=== PATIENT | female | born 1945 | race Caucasian/White ===

== ENCOUNTER → 2021-03-08 | Outpatient (CLI) | payer MEDICARE, OTHER ==
[~2021-03-08] MED LIST: SIMV10TA21
== END ==
LOC: M LABSMTC 12:33
PROVIDERS: ATTEND Anesthesiology
DX: Z01.812 Encounter for preprocedural laboratory examination (principal)

== ENCOUNTER 2021-03-13 11:49 | Day surgery (SDC) | payer MEDICARE ==
[~2021-03-13] VITALS: Ht 165.1 cm; Wt 73.9 kg
[~2021-03-13 11:49] MED LIST changes: +NS 1,000 ML IV ONE
[2021-03-13] MEDS ORDERED: propofoL 200 MG/20 ML VIAL As Ordered ONE (12:30)
[2021-03-13] MEDS ORDERED: LIDOCAINE 2% 100MG/5ML SDV (FOR ANES.) As Ordered ONE (12:30)
[2021-03-13] MEDS ORDERED: fentaNYL 100 MCG/2 ML INJECTION (J3010) As Ordered ONE (12:31)
--- NOTE | 2021-03-13 12:57 | ROOR ---
Patient Name: Violeta Yepez Procedure Date: 03/13/2021 12:27 PM Date of : 1945 Age: 76 Room: [facility] Gender: Female Note Status: Finalized Procedure: Upper GI endoscopy Indications: Dysphagia Providers: Trey Melchor MD Referring MD: Darius Marie DO Requesting Provider: Medicines: Monitored Anesthesia Care Complications: No immediate complications. Procedure: Pre-Anesthesia Assessment: - Prior to the procedure, a History and Physical was performed, and patient medications and allergies were reviewed. The patient is competent. The risks and benefits of the procedure and the sedation options and risks were discussed with the patient. All questions were answered and informed consent was obtained. Patient identification and proposed procedure were verified by the physician, the nurse and the anesthesiologist in the procedure room. Mental Status Examination: alert and oriented. Airway Examination: normal oropharyngeal airway and neck mobility. Respiratory Examination: clear to auscultation. CV Examination: normal. Prophylactic Antibiotics: The patient does not require prophylactic antibiotics. Prior Anticoagulants: The patient has taken no previous anticoagulant or antiplatelet agents. ASA Grade Assessment: II - A patient with mild systemic disease. After reviewing the risks and benefits, the patient was deemed in satisfactory condition to undergo the procedure. The anesthesia plan was to use monitored anesthesia care (MAC). Immediately prior to administration of medications, the patient was re-assessed for adequacy to receive sedatives. The heart rate, respiratory rate, oxygen saturations, blood pressure, adequacy of pulmonary ventilation, and response to care were monitored throughout the procedure. The physical status of the patient was re-assessed after the procedure. The Endoscope was introduced through the mouth, and advanced to the second part of duodenum. The upper GI endoscopy was accomplished without difficulty. The patient tolerated the procedure well. Findings: LA Grade B (one or more mucosal breaks greater than 5 mm, not extending between the tops of two mucosal folds) esophagitis with no bleeding was found in the distal esophagus. Biopsies were taken with a cold forceps for histology. Biopsies were obtained from the proximal and distal esophagus with cold forceps for histology of suspected eosinophilic esophagitis. Verification of patient identification for the specimen was done by the physician and nurse using the patient's name, date and medical record number. Estimated blood loss was minimal. A moderate Schatzki ring was found in the distal esophagus. A TTS dilator was passed through the scope. Dilation with a 15-16.5-18 mm balloon dilator was performed to 18 mm. No gross lesions were noted in the entire examined stomach. The duodenal bulb and second portion of the duodenum were normal. Impression: - LA Grade B reflux esophagitis. Biopsied. - Moderate Schatzki ring. Dilated. - No gross lesions in the stomach. - Normal duodenal bulb and second portion of the duodenum. Recommendation: - Patient has a contact number available for emergencies. The signs and symptoms of potential delayed complications were discussed with the patient. Return to normal activities tomorrow. Written discharge instructions were provided to the patient. - High fiber diet. - Follow an antireflux regimen. - Continue present medications. - Await pathology results. - Telephone GI clinic for pathology results in 2 weeks. - Use Protonix (pantoprazole) 40 mg PO BID for 8 weeks. - Use sucralfate suspension 1 gram PO QID. - Return to primary care physician. Procedure Code(s): --- Professional --- 41413, 59, Esophagogastroduodenoscopy, flexible, transoral; with transendoscopic balloon dilation of esophagus (less than 30 mm diameter) 33004, 59, Esophagogastroduodenoscopy, flexible, transoral; with biopsy, single or multiple Diagnosis Code(s): --- Professional --- K21.0, Gastro-esophageal reflux disease with esophagitis K22.2, Esophageal obstruction R13.10, Dysphagia, unspecified CPT copyright 2019 [employer]. All rights reserved. The codes documented in this report are preliminary and upon picture framer review may be revised to meet current compliance requirements. Trey Melchor MD Trey Melchor MD 03/13/2021 12:57:32 PM Electronically signed by Trey Melchor MD Number of Addenda: 0 Note Initiated On: 03/13/2021 12:27 PM Estimated Blood Loss: Estimated blood loss was minimal.
[2021-03-13 13:10] VITALS: BP 126/65
== END 2021-03-13 13:10 | disposition home or self-care (01) ==
LOC: M OPP 11:49
PROVIDERS: ATTEND Internal Medicine Gastroenterology
DX: R13.10 Dysphagia, unspecified (principal); D13.0 Benign neoplasm of esophagus; K21.00 Gastro-esophageal reflux disease with esophagitis, without bleeding; K22.2 Esophageal obstruction; E78.5 Hyperlipidemia, unspecified; R12 Heartburn; M19.90 Unspecified osteoarthritis, unspecified site; Z87.891 Personal history of nicotine dependence; Z88.8 Allergy status to other drugs, medicaments and biological substances; Z83.3 Family history of diabetes mellitus
CPT/HCPCS: 43239; 43249; 88305; J3010

== ENCOUNTER → 2021-11-01 | Outpatient (CLI) | payer MEDICARE ==
[~2021-11-01] MED LIST changes: +BENE1POW7 PO; +COLA100C5 PO; +D31000TA2 PO; -NS 1,000 ML IV ONE; -SIMV10TA21; +SIMV10TA21 PO
== END ==
LOC: M LABSMTC 10:58
PROVIDERS: ATTEND Anesthesiology
DX: Z01.812 Encounter for preprocedural laboratory examination (principal); Z20.822 Contact with and (suspected) exposure to COVID-19

== ENCOUNTER 2021-11-06 11:28 | Day surgery (SDC) | payer MEDICARE ==
[~2021-11-06] VITALS: Ht 165.1 cm; Wt 69.9 kg
[~2021-11-06 11:28] MED LIST changes: +NS 1,000 ML IV ONE
--- OUTSIDE RECORDS SUMMARY | 2021-11-06 11:33 | CCD | Continuity of Care Document ---
Author Author Violeta ANTON PA-C Organization Unknown Address [address] [place] [address] Phone [phone] Care Team Providers Care Internet Manager Name Role Phone Estela BowserP AUTM [phone] Problems Description No Information Available Social History Type Date Description Comments Sex Unknown Allergies, Adverse Reactions, Alerts Description No Information Available Medications Description No Information Available Immunizations Description No Information Available Vital Signs Date Vital Result Comment 08/24/2021 1:12pm Body Temperature 97.1 F Height 65 inches 5'5" Weight 150.00 lb BMI (Body Mass Index) 25.0 kg/m2 Results Description No Information Available Procedures Description No Information Available Medical Devices Description No Information Available Encounters Description No Information Available Assessments Date Code Description Provider 08/24/2021 M25.571 Pain in right ankle and joints o f right foot Pedro Anton PA-C 08/24/2021 S93.401A Sprain of unspecifie d ligament of right ankle, initial encounter Pedro Anton PA-C Plan of Treatment 08/24/2021 - Pedro Anton PA-C* M25.571 Pain in right ankle and joints of right foot* Follow up:* 2-3 weeks Rt. ankle merrill with BMS. * S93.401A Sprain of unspecified ligament of right ankle, initial encounter Functional Status Description No Information Available Mental Status Description No Information Available Referrals Description No Information Available
--- OUTSIDE RECORDS SUMMARY | 2021-11-06 11:33 | CCD | Continuity of Care Document ---
Author Author Violeta ANTON PA-C Organization Unknown Address [address] [place] [address] Phone [phone] Care Team Providers Care Ui Developer Designer Name Role Phone Estela BowserP AUTM [phone] Problems Active Problems Provider Date Pure hypercholesterolemia Onset: 021 Social History Type Date Description Comments Sex Unknown Allergies and adverse reactions Description No Known Drug Allergies Medications Active Medications SIG Qnty Indications Ordering Provide r Date Simvastatin 20mg Tablets 1 by mouth per day Unknown Immunizations Description No Information Available Vital Signs Date Vital Result Comment 08/24/2021 1:12pm Body Temperature 97.1 F Height 65 inches 5'5" Weight 150.00 lb BMI (Body Mass Index) 25.0 kg/m2 Results Description No Information Available Procedures Date Code Description Status 09/07/2021 35612 Office/Outpatient Established Mo d MDM 30-39 Min Completed 08/24/2021 99184 Office/Outpatient New Low MDM 30 -44 Minutes Completed Medical Devices Description No Information Available Encounters Type Date Location Provider Dx Diagnosis Office Visit 09/07/2021 11:00a [place] PA-C S9 3.401D Sprain of unspecified ligament of right ankle, subs encntr Office Visit 08/24/2021 1:00p [place] PA-C S9 3.401A Sprain of unspecified ligament of right ankle, init encntr M25.571 Pain in right ankle and join ts of right foot Assessments Date Code Description Provider 09/07/2021 S93.401D Sprain of unspecifie d ligament of right ankle, subsequent encounter Pedro Anton PA-C 08/24/2021 S93.401A Sprain of unspecifie d ligament of right ankle, initial encounter Pedro Anton PA-C 08/24/2021 M25.571 Pain in right ankle and joints o f right foot Pedro Anton PA-C Plan of Treatment Future Appointment(s):* 09/21/2021 1:00 pm - Pedro Anton PA-C at [place] 09/07/2021 - Pedro Anton PA-C* S93.401D Sprain of unspecified ligament of right ankle, subsequent encounter* Follow up:* 2 weeks for rt ankle recheck with BMS Functional Status Description No Information Available Mental Status Description No Information Available Referrals Description No Information Available
--- OUTSIDE RECORDS SUMMARY | 2021-11-06 11:33 | CCD | Continuity of Care Document ---
Author Violeta Sarabia M.D. Organization Unknown Address [address] [place] [address], [address] [place] [address] Phone [phone] Care Team Providers Care Client Experience Specialist Name Role Phone Estela Bowser Mariana AUTM [phone] Problems Description No Information Available Social History Type Date Description Comments Sex Unknown ETOH Use 1 A Day Tobacco Use Start: Unknown Non Smoker Allergies and adverse reactions Description No Known Drug Allergies Medications Active Medications SIG Qnty Indications Ordering Provide r Date Simvastatin 10mg Tablets 1tab po qd Unknown Immunizations Description No Information Available Vital Signs Date Vital Result Comment 09/13/2021 10:33am BP Systolic 122 mmHg BP Diastolic 66 mmHg Height 65 inches 5'5" Weight 158.00 lb BMI (Body Mass Index) 26.3 kg/m2 [place] Body Weight 125 lb Weight 71.669 kg BSA (Body Surface Area) 1.79 m2 02/22/2021 10:05am BP Systolic 116 mmHg BP Diastolic 58 mmHg Height 65 inches 5'5" Weight 161.00 lb BMI (Body Mass Index) 26.8 kg/m2 [place] Body Weight 125 lb Weight 73.030 kg BSA (Body Surface Area) 1.80 m2 Results Description No Information Available Procedures Description No Information Available Medical Devices Description No Information Available Encounters Description No Information Available Assessments Date Code Description Provider 09/13/2021 R13.10 Dysphagia, unspecified Trey Melchor M.D. 09/13/2021 K21.00 Gastro-esophageal re flux disease with esophagitis, without bleeding Trey Melchor M.D. 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 All questions answered. -- TO review with PCP about the alternatives for alendronate for now. -- Educated about the Anti reflux measures depending on symptoms.. -- Will schedule for EGD + Dilatation.. The procedure, indications, risks (bleeding, perforation, infection, hypotension, respiratory depression, allergy, need for endotracheal intubation, surgery, or even ), benefits, limitations (e.g., missing a lesion), and all other alternatives (including no intervention) were explained to the patient who understood and agreed for the procedure. -- Will refer to heartburn center for manometry. -- Patient is educated to continue with fiber supplements for constipation and follow with PCP for routine screening. ( refused colonoscopy again). -- Return to clinic 2 weeks post procedures. -- Follow up with PMD for routine medical care and other age appropriate health maintenance.. Functional Status Description No Information Available Mental Status Description No Information Available Referrals Description No Information Available
--- OUTSIDE RECORDS SUMMARY | 2021-11-06 11:33 | CCD | Continuity of Care Document ---
Author Author Violeta ANTON PA-C Organization Unknown Address [address] [place] [address] Phone [phone] Care Team Providers Care Anode Builder Name Role Phone Estela Bowser AUTM [phone] Problems Active Problems Provider Date Pure hypercholesterolemia [...] Information Available Procedures Date Code Description Status 10/12/2021 16806 Office/Outpatient Established SF MDM 10-19 Min Completed 09/07/2021 68994 Office/Outpatient Established SF MDM 10-19 Min Completed 08/24/2021 58578 Office/Outpatient New Low MDM 30 -44 Minutes Completed Medical Devices Description No Information Available Encounters Type Date Location Provider Dx Diagnosis Office Visit 10/12/2021 2:00p [place] Anton PA-C S9 3.401D Sprain of unspecified ligament of right ankle, subs encntr Office Visit 09/07/2021 11:00a [place] Anton PA-C S9 3.401D Sprain of unspecified ligament of right ankle, subs encntr Office Visit 08/24/2021 1:00p [place] Anton PA-C S9 3.401A Sprain of unspecified ligament of right ankle, init encntr M25.571 Pain in right ankle and join ts of right foot Assessments Date Code Description Provider 10/12/2021 S93.401D Sprain of unspecifie d ligament of right ankle, subsequent encounter Pedro Anton PA-C 09/07/2021 S93.401D Sprain of unspecifie d ligament of right ankle, subsequent encounter Pedro Anton PA-C 08/24/2021 S93.401A Sprain of unspecifie d ligament of right ankle, initial encounter Pedro Anton PA-C 08/24/2021 M25.571 Pain in right ankle and joints o f right foot Pedro Anton PA-C Plan of Treatment 10/12/2021 - Pedro Anton PA-C* S93.401D Sprain of unspecified ligament of right ankle, subsequent encounter* Follow up:* prn Functional Status Description No Information Available Mental Status Description No Information Available Referrals Description No Information Available
--- OUTSIDE RECORDS SUMMARY | 2021-11-06 11:33 | CCD | Continuity of Care Document ---
Author Author Violeta ANTON PA-C Organization Unknown Address [address] [place] [address] Phone [phone] Care Team Providers Care Fourchette Sewer Name Role Phone Estela BowserP AUTM [phone] Problems Active Problems Provider Date Pure hypercholesterolemia [...] Available Procedures Date Code Description Status 09/07/2021 48827 Office/Outpatient Established SF MDM 10-19 Min Completed 08/24/2021 08088 Office/Outpatient New Low MDM 30 -44 Minutes Completed Medical Devices Description No Information Available Encounters Type Date Location Provider Dx Diagnosis Office Visit 09/07/2021 11:00a [place] Anton PA-C S9 3.401D Sprain of unspecified ligament of right ankle, subs encntr Office Visit 08/24/2021 1:00p [place] Anton PA-C S9 3.401A Sprain of unspecified [...] 1:00 pm - Pedro Anton PA-C at [place] 09/07/2021 - Pedro Anton PA-C* S93.401D Sprain of unspecified ligament of right ankle, subsequent encounter* Follow up:* 2 weeks for rt ankle recheck with BMS Functional Status Description No Information Available Mental Status Description No Information Available Referrals Description No Information Available
--- OUTSIDE RECORDS SUMMARY | 2021-11-06 11:33 | CCD | Continuity of Care Document ---
Author Author Violeta ANTON PA-C Organization Unknown Address [address] [place] [address] Phone [phone] Care Team Providers Care Track Surfacing Machine Operator Name Role Phone Estela BowserP AUTM [phone] Problems Active Problems Provider Date Pure hypercholesterolemia Onset: 021 Social History Type Date Description Comments Sex Unknown Allergies, Adverse Reactions, Alerts Description No Known Drug Allergies Medications Active [...] Information Available Procedures Date Code Description Status 08/24/2021 50133 Office/Outpatient New Low [facility] 30 -44 Minutes Completed Medical Devices Description No Information Available Encounters Type Date Location Provider Dx Diagnosis Office Visit 08/24/2021 1:00p [place] Pedro Anton PA-C S9 3.401A Sprain of unspecified ligament of right ankle, init encntr M25.571 Pain in right ankle and join ts of right foot Assessments Date Code Description Provider 08/24/2021 S93.401A Sprain of unspecifie d ligament of right ankle, initial encounter Pedro Anton PA-C 08/24/2021 M25.571 Pain in right ankle and joints o f right foot Pedro Anton PA-C Plan of Treatment Future Appointment(s):* 09/07/2021 11:00 am - Pedro Anton PA-C at [place] 08/24/2021 - Pedro Anton PA-C* S93.401A Sprain of unspecified ligament of right ankle, initial encounter * M25.571 Pain in right ankle and joints of right foot* Follow up:* 2-3 weeks Rt. ankle merrill with BMS. Functional Status Description No Information Available Mental Status Description No Information Available Referrals Description No Information Available
--- OUTSIDE RECORDS SUMMARY | 2021-11-06 11:33 | CCD | Continuity of Care Document ---
Author Author Violeta ANTON PA-C Organization Unknown Address [address] [place] [address] Phone [phone] Care Team Providers Care Data Management Consultant Name Role Phone Estela BowserP AUTM [phone] Problems Active Problems Provider Date Pure hypercholesterolemia [...] Available Procedures Date Code Description Status 09/07/2021 18601 Office/Outpatient Established Mo d MDM 30-39 Min Completed 08/24/2021 36434 Office/Outpatient New Low MDM 30 -44 Minutes Completed Medical Devices Description No Information Available Encounters Type Date Location Provider Dx Diagnosis Office Visit 09/07/2021 11:00a [place] PA-C S9 3.401D Sprain of unspecified ligament of right ankle, subs encntr Office Visit 08/24/2021 1:00p [place] PA-C S9 3.401A Sprain of unspecified [...] 1:00 pm - Pedro Anton PA-C at [place] 09/07/2021 - Pedro Anton PA-C* S93.401D Sprain of unspecified ligament of right ankle, subsequent encounter* Follow up:* 2 weeks for rt ankle recheck with BMS Functional Status Description No Information Available Mental Status Description No Information Available Referrals Description No Information Available
--- OUTSIDE RECORDS SUMMARY | 2021-11-06 11:34 | CCD ---
Author Author [facility] Organization [facility] Address Unknown Phone Unavailable Care Team Providers Care Freight Clerk Name Role Phone Kacie Anton Unavailable Unavailable Kacie Anton Unavailable Unavailable Kacie Anton Unavailable Unavailable Kacie Anton Unavailable Unavailable Kacie Anton Unavailable Unavailable Kacie Anton Unavailable Unavailable Kacie Anton Unavailable Unavailable Kacie Anton Unavailable Unavailable Kacie Anton Unavailable Unavailable Kacie Anton Unavailable Unavailable Kacie Anton Unavailable Unavailable Kacie Anton Unavailable Unavailable Kacie Anton Unavailable Unavailable Kacie Anton Unavailable Unavailable Kacie Anton Unavailable Unavailable Kacie Anton Unavailable Unavailable Kacie Anton Unavailable Unavailable Kacie Anton Unavailable Unavailable Kacie Anton Unavailable Unavailable Kacie Anton Unavailable Unavailable Kacie Anton Unavailable Unavailable Kacie Anton Unavailable Unavailable Kacie Anton Unavailable Unavailable Kacie Anton Unavailable Unavailable Kacie Anton Unavailable Unavailable Anton, M Barratt PA Unavailable Unavailable Anton, M Barratt PA Unavailable Unavailable Anton, M Barratt PA Unavailable Unavailable Anton, M Barratt PA Unavailable Unavailable Niels, H Estela FUNERAL DIRECTOR/EMBALMER/OWNER Unavailable Unavailable Niels, H Estela FUNERAL DIRECTOR/EMBALMER/OWNER Unavailable Unavailable Niels, H Estela FUNERAL DIRECTOR/EMBALMER/OWNER Unavailable Unavailable Niels, H Estela FUNERAL DIRECTOR/EMBALMER/OWNER Unavailable Unavailable Niels, H Estela FUNERAL DIRECTOR/EMBALMER/OWNER Unavailable Unavailable Niels, H Estela FUNERAL DIRECTOR/EMBALMER/OWNER Unavailable Unavailable Niels, H Estela FUNERAL DIRECTOR/EMBALMER/OWNER Unavailable Unavailable Niels, H Estela FUNERAL DIRECTOR/EMBALMER/OWNER Unavailable Unavailable Niels, H Estela FUNERAL DIRECTOR/EMBALMER/OWNER Unavailable Unavailable Niels, H Estela FUNERAL DIRECTOR/EMBALMER/OWNER Unavailable Unavailable Niels, H Estela FUNERAL DIRECTOR/EMBALMER/OWNER Unavailable Unavailable Niels, H Estela FUNERAL DIRECTOR/EMBALMER/OWNER Unavailable Unavailable Niels, H Estela FUNERAL DIRECTOR/EMBALMER/OWNER Unavailable Unavailable Inels, H Estela FUNERAL DIRECTOR/EMBALMER/OWNER Unavailable Unavailable Niels, H Estela FUNERAL DIRECTOR/EMBALMER/OWNER Unavailable Unavailable Niels, H Estela FUNERAL DIRECTOR/EMBALMER/OWNER Unavailable Unavailable Niels, H Estela FUNERAL DIRECTOR/EMBALMER/OWNER Unavailable Unavailable Niels, H Estela FUNERAL DIRECTOR/EMBALMER/OWNER Unavailable Unavailable Niels, H Estela FUNERAL DIRECTOR/EMBALMER/OWNER Unavailable Unavailable Niels, H Estela FUNERAL DIRECTOR/EMBALMER/OWNER Unavailable Unavailable Niels, H Estela FUNERAL DIRECTOR/EMBALMER/OWNER Unavailable Unavailable Niels, H Estela FUNERAL DIRECTOR/EMBALMER/OWNER Unavailable Unavailable Niels, H Estela FUNERAL DIRECTOR/EMBALMER/OWNER Unavailable Unavailable Niels, H Estela FUNERAL DIRECTOR/EMBALMER/OWNER Unavailable Unavailable Niels, H Estela FUNERAL DIRECTOR/EMBALMER/OWNER Unavailable Unavailable Niels, H Estela FUNERAL DIRECTOR/EMBALMER/OWNER Unavailable Unavailable Niels, H Estela FUNERAL DIRECTOR/EMBALMER/OWNER Unavailable Unavailable Niels, H Estela FUNERAL DIRECTOR/EMBALMER/OWNER Unavailable Unavailable Niels, H Estela FUNERAL DIRECTOR/EMBALMER/OWNER Unavailable Unavailable Niels, H Estela FUNERAL DIRECTOR/EMBALMER/OWNER Unavailable Unavailable Niels, H Estela FUNERAL DIRECTOR/EMBALMER/OWNER Unavailable Unavailable Niels, H Estela FUNERAL DIRECTOR/EMBALMER/OWNER Unavailable Unavailable Niels, H Estela FUNERAL DIRECTOR/EMBALMER/OWNER Unavailable Unavailable Niels, H Estela FUNERAL DIRECTOR/EMBALMER/OWNER Unavailable Unavailable Niels, H Estela FUNERAL DIRECTOR/EMBALMER/OWNER Unavailable Unavailable Niels, H Estela FUNERAL DIRECTOR/EMBALMER/OWNER Unavailable Unavailable Niels, H Estela FUNERAL DIRECTOR/EMBALMER/OWNER Unavailable Unavailable Niels, H Estela FUNERAL DIRECTOR/EMBALMER/OWNER Unavailable Unavailable Niels, H Estela FUNERAL DIRECTOR/EMBALMER/OWNER Unavailable Unavailable Niels, H Estela FUNERAL DIRECTOR/EMBALMER/OWNER Unavailable Unavailable Niels, H Estela FUNERAL DIRECTOR/EMBALMER/OWNER Unavailable Unavailable Niels, H Estela FUNERAL DIRECTOR/EMBALMER/OWNER Unavailable Unavailable Niels, H Estela FUNERAL DIRECTOR/EMBALMER/OWNER Unavailable Unavailable Niels, H Estela FUNERAL DIRECTOR/EMBALMER/OWNER Unavailable Unavailable Niels, H Estela FUNERAL DIRECTOR/EMBALMER/OWNER Unavailable Unavailable Niels, H Estela FUNERAL DIRECTOR/EMBALMER/OWNER Unavailable Unavailable Niels, H Estela FUNERAL DIRECTOR/EMBALMER/OWNER Unavailable Unavailable Niels, H Estela FUNERAL DIRECTOR/EMBALMER/OWNER Unavailable Unavailable Niels, H Estela FUNERAL DIRECTOR/EMBALMER/OWNER Unavailable Unavailable Niels, H Estela FUNERAL DIRECTOR/EMBALMER/OWNER Unavailable Unavailable Niels, H Estela FUNERAL DIRECTOR/EMBALMER/OWNER Unavailable Unavailable Niels, H Estela FUNERAL DIRECTOR/EMBALMER/OWNER Unavailable Unavailable Niels, H Estela FUNERAL DIRECTOR/EMBALMER/OWNER Unavailable Unavailable Niels, H Estela FUNERAL DIRECTOR/EMBALMER/OWNER Unavailable Unavailable Niels, H Estela FUNERAL DIRECTOR/EMBALMER/OWNER Unavailable Unavailable Niels, H Estela FUNERAL DIRECTOR/EMBALMER/OWNER Unavailable Unavailable Niels, H Estela FUNERAL DIRECTOR/EMBALMER/OWNER Unavailable Unavailable Niels, H Estela FUNERAL DIRECTOR/EMBALMER/OWNER Unavailable Unavailable Niels, H Estela FUNERAL DIRECTOR/EMBALMER/OWNER Unavailable Unavailable Charity, Vu Unavailable Unavailable Charity, Vu Unavailable Unavailable Charity, Vu Unavailable Unavailable Charity, Vu Unavailable Unavailable Charity, Vu Unavailable Unavailable Charity, Vu Unavailable Unavailable Anton, M Barratt PA Unavailable Unavailable Anton, M Barratt PA Unavailable Unavailable Anton, M Barratt PA Unavailable Unavailable Anton, M Barratt PA Unavailable Unavailable Anton, M Barratt PA Unavailable Unavailable Anton, M Barratt PA Unavailable Unavailable Anton, M Barratt PA Unavailable Unavailable Anton, M Barratt PA Unavailable Unavailable Anton, M Barratt PA Unavailable Unavailable Anton, M Barratt PA Unavailable Unavailable Anton, M Barratt PA Unavailable Unavailable Anton, M Barratt PA Unavailable Unavailable Anton, M Barratt PA Unavailable Unavailable Anton, M Barratt PA Unavailable Unavailable Anton, M Barratt PA Unavailable Unavailable Anton, M Barratt PA Unavailable Unavailable Anton, M Barratt PA Unavailable Unavailable Anton, M Barratt PA Unavailable Unavailable Anton, M Barratt PA Unavailable Unavailable Anton, M Barratt PA Unavailable Unavailable Anton, M Barratt PA Unavailable Unavailable Anton, M Barratt PA Unavailable Unavailable Anton, M Barratt PA Unavailable Unavailable Anton, M Barratt PA Unavailable Unavailable Anton, M Barratt PA Unavailable Unavailable Anton, M Barratt PA Unavailable Unavailable Anton, M Barratt PA Unavailable Unavailable Anton, M Barratt PA Unavailable Unavailable Anton, M Barratt PA Unavailable Unavailable Joann AMARO MD Unavailable Unavailable Joann AMARO MD Unavailable Unavailable Joann AMARO MD Unavailable Unavailable Joann AMAOR MD Unavailable Unavailable Joann AMARO MD Unavailable Unavailable Joann AMARO MD Unavailable Unavailable Joann AMARO MD Unavailable Unavailable Joann AMARO MD Unavailable Unavailable Joann AMARO MD Unavailable Unavailable Joann AMARO MD Unavailable Unavailable Joann AMARO MD Unavailable Unavailable Joann AMARO MD Unavailable Unavailable Joann AMARO MD Unavailable Unavailable Joann AMARO MD Unavailable Unavailable Joann AMARO MD Unavailable Unavailable Joann AMARO MD Unavailable Unavailable Joann AMARO MD Unavailable Unavailable Joann AMARO MD Unavailable Unavailable Joann AMARO MD Unavailable Unavailable Joann AMARO MD Unavailable Unavailable Joann AMARO MD Unavailable Unavailable Joann AMARO MD Unavailable Unavailable Joann AMARO MD Unavailable Unavailable Joann AMARO MD Unavailable Unavailable Joann AMARO MD Unavailable Unavailable Joann AMARO MD Unavailable Unavailable Joann AMARO MD Unavailable Unavailable Joann AMARO MD Unavailable Unavailable Joann AMARO MD Unavailable Unavailable Joann AMARO MD Unavailable Unavailable Joann AMARO MD Unavailable Unavailable Joann AMARO MD Unavailable Unavailable Joann AMARO MD Unavailable Unavailable Niels, H Estela FUNERAL DIRECTOR/EMBALMER/OWNER Unavailable Unavailable Niels, H Estela FUNERAL DIRECTOR/EMBALMER/OWNER Unavailable Unavailable Niels, H Estela FUNERAL DIRECTOR/EMBALMER/OWNER Unavailable Unavailable Niesl, H Estela FUNERAL DIRECTOR/EMBALMER/OWNER Unavailable Unavailable Niels, H Estela FUNERAL DIRECTOR/EMBALMER/OWNER Unavailable Unavailable Niels, H Estela FUNERAL DIRECTOR/EMBALMER/OWNER Unavailable Unavailable Niels, H Estela FUNERAL DIRECTOR/EMBALMER/OWNER Unavailable Unavailable Niels, H Estela FUNERAL DIRECTOR/EMBALMER/OWNER Unavailable Unavailable Niels, H Estela FUNERAL DIRECTOR/EMBALMER/OWNER Unavailable Unavailable Niels, H Estela FUNERAL DIRECTOR/EMBALMER/OWNER Unavailable Unavailable Niels, H Estela FUNERAL DIRECTOR/EMBALMER/OWNER Unavailable Unavailable Niels, H Estela FUNERAL DIRECTOR/EMBALMER/OWNER Unavailable Unavailable Niels, H Estela FUNERAL DIRECTOR/EMBALMER/OWNER Unavailable Unavailable Niels, H Estela FUNERAL DIRECTOR/EMBALMER/OWNER Unavailable Unavailable Niels, H Estela FUNERAL DIRECTOR/EMBALMER/OWNER Unavailable Unavailable Niels, H Estela FUNERAL DIRECTOR/EMBALMER/OWNER Unavailable Unavailable Niels, H Estela FUNERAL DIRECTOR/EMBALMER/OWNER Unavailable Unavailable Niels, H Estela FUNERAL DIRECTOR/EMBALMER/OWNER Unavailable Unavailable Niels, H Estela FUNERAL DIRECTOR/EMBALMER/OWNER Unavailable Unavailable Niels, H Estela FUNERAL DIRECTOR/EMBALMER/OWNER Unavailable Unavailable Niels, H Estela FUNERAL DIRECTOR/EMBALMER/OWNER Unavailable Unavailable Niels, H Estela FUNERAL DIRECTOR/EMBALMER/OWNER Unavailable Unavailable Niels, H Estela FUNERAL DIRECTOR/EMBALMER/OWNER Unavailable Unavailable Niels, H Estela FUNERAL DIRECTOR/EMBALMER/OWNER Unavailable Unavailable Niels, H Estela FUNERAL DIRECTOR/EMBALMER/OWNER Unavailable Unavailable Niels, H Estela FUNERAL DIRECTOR/EMBALMER/OWNER Unavailable Unavailable Niels, H Estela FUNERAL DIRECTOR/EMBALMER/OWNER Unavailable Unavailable Niels, H Estela FUNERAL DIRECTOR/EMBALMER/OWNER Unavailable Unavailable Niels, H Estela FUNERAL DIRECTOR/EMBALMER/OWNER Unavailable Unavailable Niels, H Estela FUNERAL DIRECTOR/EMBALMER/OWNER Unavailable Unavailable Niels, H Estela FUNERAL DIRECTOR/EMBALMER/OWNER Unavailable Unavailable Niels, H Estela FUNERAL DIRECTOR/EMBALMER/OWNER Unavailable Unavailable Niels, H Estela FUNERAL DIRECTOR/EMBALMER/OWNER Unavailable Unavailable Niels, H Estela FUNERAL DIRECTOR/EMBALMER/OWNER Unavailable Unavailable Niels, H Estela FUNERAL DIRECTOR/EMBALMER/OWNER Unavailable Unavailable Niels, H Estela FUNERAL DIRECTOR/EMBALMER/OWNER Unavailable Unavailable Niels, H Estela FUNERAL DIRECTOR/EMBALMER/OWNER Unavailable Unavailable Niels, H Estela FUNERAL DIRECTOR/EMBALMER/OWNER Unavailable Unavailable Niels, H Estela FUNERAL DIRECTOR/EMBALMER/OWNER Unavailable Unavailable Niels, H Estela FUNERAL DIRECTOR/EMBALMER/OWNER Unavailable Unavailable Niels, H Estela FUNERAL DIRECTOR/EMBALMER/OWNER Unavailable Unavailable Niels, H Estela FUNERAL DIRECTOR/EMBALMER/OWNER Unavailable Unavailable Niels, H Estela FUNERAL DIRECTOR/EMBALMER/OWNER Unavailable Unavailable Niels, H Estela FUNERAL DIRECTOR/EMBALMER/OWNER Unavailable Unavailable Niels, H Estela FUNERAL DIRECTOR/EMBALMER/OWNER Unavailable Unavailable Niels, H Estela FUNERAL DIRECTOR/EMBALMER/OWNER Unavailable Unavailable Niels, H Estela FUNERAL DIRECTOR/EMBALMER/OWNER Unavailable Unavailable Niels, H Estela FUNERAL DIRECTOR/EMBALMER/OWNER Unavailable Unavailable Niels, H Estela FUNERAL DIRECTOR/EMBALMER/OWNER Unavailable Unavailable Niels, H Estela FUNERAL DIRECTOR/EMBALMER/OWNER Unavailable Unavailable Niels, H Estela FUNERAL DIRECTOR/EMBALMER/OWNER Unavailable Unavailable Niels, H Estela FUNERAL DIRECTOR/EMBALMER/OWNER Unavailable Unavailable Niels, H Estela FUNERAL DIRECTOR/EMBALMER/OWNER Unavailable Unavailable Niels, H Estela FUNERAL DIRECTOR/EMBALMER/OWNER Unavailable Unavailable Niels, H Estela FUNERAL DIRECTOR/EMBALMER/OWNER Unavailable Unavailable Niels, H Estela FUNERAL DIRECTOR/EMBALMER/OWNER Unavailable Unavailable Niels, H Estela FUNERAL DIRECTOR/EMBALMER/OWNER Unavailable Unavailable Niels, H Estela FUNERAL DIRECTOR/EMBALMER/OWNER Unavailable Unavailable Niels, H Estela FUNERAL DIRECTOR/EMBALMER/OWNER Unavailable Unavailable CHANLIECCO, C LOUISA MD Unavailable Unavailable CHANLIECCO, C LOUISA MD Unavailable Unavailable CHANLIECCO, C LOUISA MD Unavailable Unavailable CHANLIECCO, C LOUISA MD Unavailable Unavailable CHANLIECCO, C LOUISA MD Unavailable Unavailable CHANLIECCO, C LOUISA MD Unavailable Unavailable CHANLIECCO, C LOUISA MD Unavailable Unavailable CHANLIECCO, C LOUISA MD Unavailable Unavailable CHANLIECCO, C LOUISA MD Unavailable Unavailable CHANLIECCO, C LOUISA MD Unavailable Unavailable CHANLIECCO, C LOUISA MD Unavailable Unavailable Re-disclosure Warning The records that you are about to access may contain information from federally-assisted alcohol or drug abuse programs. If such information is present, then the following federally mandated warning applies: This information has been disclosed to you from records protected by federal confidentiality rules (42 CFR part 2). The federal rules prohibit you from making any further disclosure of this information unless further disclosure is expressly permitted by the written consent of the person to whom it pertains or as otherwise permitted by 42 CFR part 2. A general authorization for the release of medical or other information is NOT sufficient for this purpose. The Federal rules restrict any use of the information to criminally investigate or prosecute any alcohol or drug abuse patient.The records that you are about to access may contain highly sensitive health information, the redisclosure of which is protected by Article 27-F of the [facility] Public Health law. If you continue you may have access to information: Regarding HIV / AIDS; Provided by facilities licensed or operated by the [facility] Office of Mental Health; or Provided by the [facility] Office for People With Developmental Disabilities. If such information is present, then the following [facility] mandated warning applies: This information has been disclosed to you from confidential records which are protected by state law. State law prohibits you from making any further disclosure of this information without the specific written consent of the person to whom it pertains, or as otherwise permitted by law. Any unauthorized further disclosure in violation of state law may result in a fine or chcf sentence or both. A general authorization for the release of medical or other information is NOT sufficient authorization for further disc losure. Allergies and Adverse Reactions Type Description Substance Reaction Status Data Source(s ) Food allergy No Known Food Allergies No Known Food Allergies [facility] Family History Family Member Name Family Member Gender Family Member Status Date o f Status Description Data Source(s) Unknown Condition [facility] Unknown [facility] Unknown [facility] Unknown Condition [facility] Encounters Encounter Providers Location Date Indications Data Source(s ) Outpatient Attender: Pedro JESUS Physical Therapy 01:00:00 PM EST [facility] ([facility]) Outpatient Attender: Estela Mcconnellerrer: Estela Bowser NP 10/11/2021 09:55:[address] [facility] Outpatient Attender: Pedro Anton PAConsultant: Estela Fontanez NP 09/13/2021 11:43:10 AM EDT - 09/29/2021 01:16:00 PM EDT [facility] Patient discharged. Outpatient Attender: Pedro JESUS Physical Therapy 11:00:00 AM EDT [facility] ([facility]) OFFICE OUTPATIENT NEW 30 MINUTES Attender: Pedro JESUS Ph ysical Therapy 08/24/2021 01:00:00 PM EDT [facility] ([facility]) Emergency Attender: LOUISA CHATTERJEE MDConsultant: Tamera Bowser NP 08/22/2021 10:09:00 PM EDT - 08/22/2021 11:53:00 PM EDT [facility] Patient discharged. Outpatient Attender: Estela Mcconnellerrer: Estela Bowser NP 06/29/2021 07:37:00 AM EDT - 06/29/2021 08:16:00 AM EDT [facility] Outpatient Attender: Vu Nash 06/19/2021 08:37:00 AM EDT [place],E78.2,M81.0 [facility] [place],E78.2,M81.0 Outpatient Attender: Vu NashReferrer: Estela Bowser NP 06/16/2021 09:33:00 AM EDT - 06/16/2021 10:13:00 AM EDT [facility] Outpatient Attender: Estela Bowser NP 06/13/2021 11:11:00 AM E DT K59.00 [facility] K59.00 Outpatient Attender: Estela Sanzeferrer: Estela Bowser NP 06/08/2021 02:34:[address] [facility] Outpatient Attender: Estela Sanzeferrer: Estela Bowser NP 04/05/2021 07:50:[address] [facility] Outpatient Attender: Estela Bowser NP 03/15/2021 08:27:00 AM E DT M81.0,E78.5 [facility] M81.0,E78.5 Outpatient Attender: Estela Sanzeferrer: Estela Bowser NP 03/02/2021 07:32:00 AM EDT - 03/02/2021 08:18:00 AM EDT [facility] Outpatient Attender: DURAN Parada/Tripp/Sloan clancy/Willie 02/22/2021 10:00:00 AM EDT [facility] ([facility], ) Outpatient Attender: Estela Sanzeferrer: Estela Bowser NP 01/10/2021 01:45:00 PM EST - 01/10/2021 02:07:00 PM [facility] Outpatient Attender: Estela Boswer NP 10/10/2020 09:33:[address] DYSPHAS[facility] DYSPHASIA Outpatient Attender: Estela Sanzeferrer: Estela Bowser NP 10/06/2020 08:52:00 AM EST - 10/06/2020 09:44:00 AM [facility] Immunizations Vaccine Date Status Description Data Source(s) pneumococcal polysaccharide PPV23 04/05/2021 12:00:00 AM EDT comple bobby [facility] COVID-19 Moderna 03/01/2021 12:00:00 AM EDT completed [facility] COVID-19 VACCINE Moderna 03/01/2021 12:00:00 AM EDT completed [facility] Vaccine Series Complete: YESThis Data wa s Submitted to [facility] [employer]. COVID-19 VACCINE, MRNA-1273, LNP-S (MODERNA)/PF 03/01/2021 1 2:00:00 AM EDT completed [facility] COVID-19 Moderna 01/29/2021 12:00:00 AM EST completed [facility] COVID-19 VACCINE Moderna 01/29/2021 12:00:00 AM EST completed [facility] Vaccine Series Complete: NOThis Data was Submitted to [facility] [employer]. COVID-19 VACCINE, MRNA-1273, LNP-S (MODERNA)/PF 01/29/2021 1 2:00:00 AM EST completed [facility] Shingrix 01/10/2021 12:00:00 AM EST completed [facility] Shinix 01/10/2021 12:00:00 AM [facility] AM [facility] 12:00[facility]00 AM EST [facility] 12:00:00 AM EST completed [facility] Medications Medication Brand Name Start Date Product Form Dose Route Admi nistrative Instructions Pharmacy Instructions Status Indications Reaction Description Data Source(s) Acetaminophen 325 MG / Hydrocodone Bitartrate 5 MG Ora l Tablet 5-325 mg HYDROCODONE/ACETAMINOPHEN 08/23/2021 12:00:00 AM EDT tablet 12 TAKE ONE TABLET BY MOUTH THREE TIMES A DAY NEEDED FOR SEVERE PAIN MAXIMUM DAILY DOSE = 3 TAKE ONE TABLET BY MOUTH THREE TIMES A DAY NEEDED FOR SEVERE PAIN MAXIMUM DAILY DOSE = 3 SOLD: 08/23/2021 [facility] 600 mg 08/23/2021 12:00:00 AM EDT tablet 30 TAKE ONE TABLET BY MOUTH EVERY 8 HOURS NEEDED FOR PAIN/FEVER TAKE ONE TABLET BY MOUTH EVERY 8 HOURS A S NEEDED FOR PAIN/FEVER SOLD: 08/23/2021 [facility] POLYETHYLENE GLYCOL 3350 142 MG/ML Oral Solution Polyethylene Glycol 3350 (Miralax) 17 gram/dose powder Polyethylene Glycol 3350 (Miralax) 17 gr am/dose powder 06/08/2021 03:15:25 PM EDT 17 [facility] WHEAT DEXTRIN Wheat Dextrin (Benefiber Healthy Shape) 5 gram/7.4 gram powder Wheat Dextrin (Benefiber Healthy Shape) 5 gram/7.4 gram powder 04/05/2021 08:20:22 AM EDT [address] [facility] Cholecalciferol 1000 UNT Oral Capsule Cholecalciferol (Vitamin D3) Cholecalciferol (Vitamin D3) 04/05/2021 08:19:57 AM EDT [address] [facility] pantoprazole 40 MG Delayed Release Oral Tablet Pantoprazole Pantoprazole 04/05/2021 08:19:33 AM EDT 40 MG completed [facility] Sucralfate 04/05/2021 08:19:18 AM EDT 10 ML comple bobby [facility] 0.5 ML pneumococcal capsular polysacchar kris type 1 vaccine 0.05 MG/ML / pneumococcal capsular polysaccharide type 10A vaccine 0.05 MG/ML / pneumococcal capsular polysaccharide type 11A vaccine 0.05 MG/ML / pneumococcal capsular polysaccharide type 12F vac pneumococcal 23-nathan ps vaccine 25 mcg/0.5 mL injection syringe pneumococcal 23-nathan ps vaccine 25 mcg/0. 5 mL injection syringe 04/05/2021 07:50:48 AM EDT 0.5 ML [facility] Simvastatin 20 MG Oral Tablet Simvastatin 03/15/2021 10:01:41 AM EDT 20 MG active [facility] pantoprazole 40 MG Delayed Release Oral Tablet PANTOPRAZOLE SODIUM 03/13/2021 12:00:00 AM EDT tablet,delayed release (/EC) 60 T KATHRYN 1 TABLET BY MOUTH IN THE MORNING 1/2 HOUR BEFORE BREAKFAST AND TAKE ONE TABLET BY MOUTH BEFORE BEDTIME, TAPER AFTER 8 WEEKS TAKE 1 TABLET BY MOUTH IN THE MORNING 1/ 2 HOUR BEFORE BREAKFAST AND TAKE ONE TABLET BY MOUTH BEFORE BEDTIME, TAPER AFTER 8 WEEKS SOLD: 04/05/2021 [facility] pantoprazole 40 MG Delayed Release Oral Tablet Pantoprazole Sodium 03/13/2021 12:00:00 AM EDT active M [facility] ([facility], ) 100 mg/mL 03/13/2021 12:00:00 AM EDT suspension 420 TAKE 10ML BY MOUTH HALF AN HOUR BEFORE MEALS, AND AT BEDTIME (3-4 TIMES DAILY) FOR 4 WEEKS TAKE 10ML BY MOUTH HALF AN HOUR BEFORE MEALS, AND AT BEDTIME (3-4 TIMES DAILY) FOR 4 WEEKS SOLD: 03/14/2021 [facility] pantoprazole 40 MG Delayed Release Oral Tablet PANTOPRAZOLE SODIUM 03/13/2021 12:00:00 AM EDT tablet,delayed release (DR/EC) 60 T KATHRYN 1 TABLET BY MOUTH IN THE MORNING 1/2 HOUR BEFORE BREAKFAST AND TAKE ONE TABLET BY MOUTH BEFORE BEDTIME, TAPER AFTER 8 WEEKS TAKE 1 TABLET BY MOUTH IN THE MORNING 1/ 2 HOUR BEFORE BREAKFAST AND TAKE ONE TABLET BY MOUTH BEFORE BEDTIME, TAPER AFTER 8 WEEKS SOLD: 03/14/2021 [facility] Sucralfate 100 MG/ML Oral Suspension Sucralfate 03/13/2021 12:00:00 A M EDT ORAL active [facility] ([facility], ) Alendronic acid 70 MG Oral Tablet Alendronate Alendronate 02/06/2021 08:02:48 AM EST 0 completed [facility] Shingrix (PF) 50 mcg/0.5 mL intramuscular suspension, kit (v aricella-zoster 01/10/2021 01:45:49 PM EST 0.5 ML completed [facility] Shingrix (PF) 50 mcg/0.5 mL intramuscular suspension, kit (v aricella-zoster 01/10/2021 01:45:49 PM EST 0.5 ML completed [facility] Simvastatin 10 MG Oral Tablet Simvastatin 10/06/2020 09:27:36 AM EST 10 MG completed [facility] Simvastatin 10 MG Oral Tablet Simvastatin 10/06/2020 09:27:36 AM EST 10 MG active [facility] Simvastatin 10 MG Oral Tablet Simvastatin 10/06/2020 09:27:36 AM EST 10 MG active [facility] Alendronic acid 70 MG Oral Tablet Alendronate Alendronate 10/06/2020 09:26:43 AM EST 70 MG active [facility] Alendronic acid 70 MG Oral Tablet Alendronate Alendronate 10/06/2020 09:26:43 AM EST 70 MG active [facility] Alendronic acid 70 MG Oral Tablet Alendronate Alendronate 10/06/2020 09:26:43 AM EST 70 MG completed [facility] Shingrix (PF) 50 mcg/0.5 mL intramuscular suspension, kit (v aricella-zoster 10/06/2020 08:52:00 AM EST 0.5 ML completed [facility] Shingrix (PF) 50 mcg/0.5 mL intramuscular suspension, kit (v aricella-zoster 10/06/2020 08:52:00 AM EST 0.5 ML completed [facility] Shingrix (PF) 50 mcg/0.5 mL intramuscular suspension, kit (v aricella-zoster 10/06/2020 08:52:00 AM EST 0.5 ML completed [facility] Fluticasone Propionate (Flonase Allergy Relief) 50 mcg/actuation spray,suspension 04/28/2020 05:01:45 PM EDT 2 SPRAY completed [facility] cetirizine hydrochloride 10 MG Oral Tablet Cetirizine (Zyrtec) 10 mg tablet Cetirizine (Zyrtec) 10 mg tablet 04/28/2020 05:01:01 PM EDT 10 MG completed [facility] Alendronic acid 70 MG Oral Tablet Alendronate Alendronate 04/07/2020 03:11:38 PM EDT 70 MG completed [facility] Alendronic acid 70 MG Oral Tablet Alendronate Alendronate 04/07/2020 03:11:38 PM EDT 70 MG completed [facility] Alendronic acid 70 MG Oral Tablet Alendronate Alendronate 04/07/2020 03:11:38 PM EDT 70 MG completed [facility] Simvastatin 10 MG Oral Tablet Simvastatin 12/17/2019 11:08:41 AM EST 10 MG completed [facility] Simvastatin 10 MG Oral Tablet Simvastatin 12/17/2019 11:08:41 AM EST 10 MG completed [facility] Simvastatin 10 MG Oral Tablet Simvastatin 12/17/2019 11:08:41 AM EST 10 MG completed [facility] Insurance Providers Payer name Policy type / Coverage type Policy ID Covered libertarian ID Covered libertarian's relationship to dumont Policy Dumont Plan Information [facility] [employer] [facility] Individual Policy 0 [id number] Self 0 [facility] Individual Policy 0 [id number] Self 0 [facility] Individual Policy 0 [id number] Self 0 [facility] Individual Policy 0 [id number] Self 0 [facility] Individual Policy 0 [id number] Self 0 [facility] Individual Policy [id number] Self 50075 [facility] Individual Policy 0 [id number] S elf 0 [facility] Individual Policy 0 [id number] S elf 0 [facility] Individual Policy 0 [id number] S elf 0 [facility] Individual Policy 0 [id number] S elf 0 [facility] Individual Policy 0 [id number] S elf 0 [facility] Individual Policy 0 [id number] Self 0 [facility] Individual Policy 0 [id number] 0 Self 0 [facility] Individual Policy 0 [id number] S elf 0 [id number] [facility] MEDICARE COMPLETE -RECURRING [id number] 18 [id number] [facility] MEDICARE COMPLETE -RECURRING [id number] [employer] [facility] MEDICARE O/P [id number] 18 [id number] [employer]ANCE [id number] SP [id number] [employer] [facility] MEDICARE O/P [id number] 18 [id number] [employer] MEDICARE-O/P [id number] 18 [id number] [employer] MEDICARE-O/P [id number] 18 [id number] MEDICARE COMPLETE [id number] SP [id number] Problems, Conditions, and Diagnoses Code Display Name Description Problem Type Effective Dates Data Source(s) P55884 Pain in right ankle and joints of right foot Pain in right ankle and joints of right foot Diagnosis 09/14/2021 08:18:00 AM [facility] E23085 Unspecified street and [place] as the place of occurrence of the external cause Unspecified street and highway as the pl sherman of occurrence of the external cause Diagnosis 08/22/2021 10:09:00 PM [facility] [id number] Overexertion from prolonged static or awkward postures, initial encounter Overexertion from prolonged static or aw kward postures, initial encounter Diagnosis 08/22/2021 10:09:00 PM [facility] [id number] Displaced fracture of medial malleolus of right tibia, initial encounter for closed fracture Displaced fracture of medial malleolus o f right tibia, initial encounter for closed fracture Diagnosis 08/22/2021 10:09:00 PM [facility] [id number] Unspecified injury of right foot, initia l encounter Unspecified injury of right foot, initial encounter Diagnosis 08/22/2021 10:09:00 PM [facility] [id number] Pure hypercholesterolemia Pure hypercholesterolemia Pr oblem 08/25/2021 12:00:00 AM EDT [facility] ([facility]) Surgeries/Procedures Procedure Description Date Indications Data Source(s) OFFICE OUTPATIENT VISIT 10 MINUTES 10/12/2021 12:00:00 AM EST [facility]) OFFICE OUTPATIENT VISIT 10 MINUTES 09/07/2021 12:00:00 AM EDT [facility] ([facility]) OFFICE OUTPATIENT VISIT 25 MINUTES 09/07[facility] OFF[facility] OUTPATIENT NEW 30 MINUTES 08/24/2021 12:00:00 A M EDT [facility] ([facility]) Ultrasonography of abdomen (procedure) 06/19/2021 09:1 0:00 AM [facility] Diagnostic radiography of abdomen (procedure) 06/13/20 11:33:00 AM [facility] Endoscopy Upper GI Biopsy 03/13/2021 12:00:00 AM EDT [facility] ([facility], ) Endoscopy Upper GI Balloon Dilation Of Esophagus 03/13 12:00:00 AM [facility] ([facility], ) Imaging of gastrointestinal tract (procedure) 10/10/20 08:45:40 AM [facility] Imaging of gastrointestinal tract (procedure) 10/10/20 08:45:40 AM [facility] Results ID Date Data Source [id number] 11/01/2021 11:00:00 AM [facility] Name Value Range Interpretation Code Description Data Christin rce(s) Supporting Document(s) SARS-CoV-2 (COVID-19) RNA [Presence] in Respiratory specimen by SYMONE with probe detection Not Detected [facility] This lab was ordered by [facility] and reported by [employer]. ID Date Data Source [id number] 10/11/2021 10:00:00 AM [facility] Patient Name: TIMO YEPEZ : 1945 Sex: F Pt Unit #: [id number] Location:[facility] Provider: Visit Date/Time: 10/11/21 Primary Insurance: [employer] Secondary Insurance: Self Pay Intake Vital Signs 10/11/21 10:00 Current Height 5 ft 4.5 in Current Weight 154 lb Weight Measurement Method Standing Scale BMI 26.0 BP 100/60 Blood Pressure Location Lt brachial Position Sitting Respiration 18 Pulse 78 Pulse Strength Normal Pulse Source Pulse Oximeter Pulse Oximetry (%) 99 Oxygen Delivery Method room air Intake Visit Reasons: Hyperlipidemia Nurse Note: pt is here today for hyperlipidemia Is patient in pain?: No Allergies No Known Food Allergies Allergy (Unverified 03/02/21 07:44) NKDA Allergy (Unknown, Uncoded 01/28/14 17:06) Medications - Last Reconciled 10/11/21 by Estela Bowser NP cholecalciferol (vitamin D3) 25 mcg PO QDAY simvastatin 20 mg PO QPM wheat dextrin (Benefiber Healthy Shape) 2 grams PO BID Fall Risk History of falls: Yes (pt fell a month ago outside ) Ambulatory Aid:: None Gait/Transferring:: Normal Medications:: No High Risk Medications HIV Testing Offer - ages 13-64 Requirement for HIV testing offer been met?: Declines today. Pretest education received and acknowledged Coronavirus Screening Screening Are you currently positive or on isolation for COVID ?: No Do you have any NEW signs of one or more of the following?: no symptoms Do you have NEW signs of at least two of the following?: no symptoms HPI Additional HPI HPI Details: RECHECK. BP STABLE 100/60 FEELS WELL. HAS APPT FOR COVID BOOSTER. HAD FLU SHOT AT [facility] Medical History Difficulty swallowing pills Esophageal dysmotility Eustachian tube dysfunction Hyperlipidemia Osteoporosis Family History Mother Hypertension Father No problems noted. Social History Does the Patient have a Healthcare Proxy: Yes (BOTH DAUGHTERS) Does Patient have a DNR?: No Does Patient have a Living Will?: No Review of Systems Const Denies anorexia, Denies fatigue, Denies fever(s), Denies headache(s), Denies weight gain and Denies weight loss Eyes Denies itchy eyes ENT Denies dysphagia, Denies dizziness, Denies headache(s), Denies nasal congestion, Denies nasal discharge, Denies sinus pain and Denies sore throat Card Denies chest pain, Denies palpitations and Denies dyspnea Resp Denies cough, Denies dyspnea and Denies wheezing GI Denies abdominal pain, Denies dysphagia, Denies heartburn, Denies diarrhea, Denies nausea and Deniesvomiting Musc Denies back pain, Reports arthralgias (ARTHRITIS PAIN IN HANDS, OCCASIONALLY NECK.) and Denies limited range of motion Neuro Denies dizziness and Denies headache(s) Psych Denies anxiety, Denies change in appetite, Denies depression and Denies irritability Endo Denies fatigue and Denies palpitations Donny/Lymph Denies easy bleeding, Denies easy bruising and Denies lymphadenopathy Aller/Immun Denies urticaria, Denies itchy eyes, Denies seasonal rhinorrhea and Denies wheezing Exam Const General: cooperative, healthy appearing, no acute distress, well developed and well groomed Nutritional Appearance: well nourished Orientation: alert, awake and oriented x3 HENWY Head: normal to inspection and normocephalic Ears: hearing grossly normal bilaterally and external ears normal General nose exam: external nose normal and nares normal Face and sinus: normal facial exam Throat: posterior oropharynx normal Eyes General: appearance normal, both eyes and all related structures Eyelids: eyelids normal Conjunctivae: conjunctivae normal Sclera: sclerae normal Neck Neck: normal visual inspection, full ROM and no lymphadenopathy Neck mass: No Thyroid: thyroid normal Carotids: normal carotid upstroke Resp Effort Inspection: normal respiratory effort, able to speak in complete sentences and no cough Auscultation: clear to auscultation bilaterally Cardio Rate: regular rate Rhythm: regular rhythm Heart Sounds: S1 normal and S2 normal Pulses: normal peripheral pulses GI Inspection: Yes normal to inspection Palpation: soft General: No CVA tenderness Musc Cervical Spine: normal cervical lordosis and cervical ROM normal Thoracic/Lumbar Spine: thoracic and lumbar spine normal to inspection Skin Lesions: no lesions Rashes: no rashes Hair: normal Nails: normal Neuro General: patient alert, patient oriented x3 and gait normal Cranial Nerves: CN's II-XII intact bilaterally Cognition: normal cognition Speech: speech normal Gait: normal gait Extrem General: normal to inspection and full ROM Psych Appearance: grossly normal and well kempt Ment al Status: mental status grossly normal Speech and Movement: speech and movement normal Affect: normal affect Attitude: cooperative Thought Process: normal Thought Content: normal Insight: insight good Judgment: judgment good Assessment Plan Assessment Plan (1) Hyperlipidemia: Status: Acute Code(s): E78.5 - Hyperlipidemia, unspecified SNOMED Code(s): 82758548 Category: Medical Qualifiers: Hyperlipidemia type: mixed hyperlipidemia Qualified Code(s): E78.2 - Mixed hyperlipidemia (2) Difficulty swallowing: Status: Acute Code(s): R13.10 - Dysphagia, unspecified SNOMED Code(s): 35744810 Category: Medical Plan: BP STABLE. CONT CURRENT MEDS. KEEP APPT WITH GASTRO RTC 6 MONTHS LABS PRIOR TO NEXT OV Orders: Orders CMP Today Z09 - Encounter for follow-up examination after completed treatment for conditions other than malignant neoplasm LIPID PANEL Today E78.2 - Mixed hyperlipidemia Vitamin D 25-OH Today E04.1 - Nontoxic single thyroid nodule, M81.0 - Age-related osteoporosis without current pathological fracture Coding [place] [address] Est Pt Extended Comp Patient Type Established History Detailed Exam Detailed Medical Decision Making Moderate Complexity Diagnoses Hyperlipidemia E78.2 Hyperlipidemia type: mixed hyperlipidemia Difficulty swallowing R13.10 Additional Codes Intake - Is patient in pain?: No (1126F) Time Spent (min) 20 <Electronically signed by Estela Bowser NP> 10/11/21 1042 Name Value Range Interpretation Code Description Data Christin rce(s) Supporting Document(s) ID Date Data Source [id number] 08/23/2021 10:16:00 AM EDT [facility] [address] [place] [address] PHONE: [phone] FAX: [phone] Name .................. : CANDELARIO Hunter Acct Number.................. : [id number] ROOM. ................. : TR03 MR Number ................... : [id number] Stay type ............. : E/R Discharge Date......... ... : 08/22/21 Admit Date ......... : 08/22/21 Admit Phys .................... : [facility] Date of ....... : 1945 Family Phys ................... : HUI Phone .................. : [phone] Age ................................ : 76 Film# .................. .:[id number] Sex ................................. : F Unsigned transcriptions are preliminary reports and do not represent a medical or legal document FOOT COMPLETE-[address] [place] [id number] COMPLETE:08/23/21 07:14 MWB [id number] Reason(s): Foot/Heel Pa in RADIOGRAPHS OF THE RIGHT FOOT 4 VIEWS INDICATION: Trauma with pain in the foot and heel COMPARISON: None. FINDINGS: No acute fracture or dislocation. No focal bone lesion. Joint spaces are well-preserved. Multi partite lateral sesamoid MTP joint great toe which is a normal variant. There is also an accessory ossicle along the base of the fifth metatarsal lateral to the cuboid. This also is a normal variation. IMPRESSION: No acute fracture. Electronically Reviewed and Signed By Kamlesh Allen MD , 08/23/21 10:16, BRETT Transcribe Initials: SSR, Transcribe Date: 08/23/21 09:16, Dictation Date: Copy for: EMERGENCY DEPT via emazem Copy for: 710 MED REC DISCHARGED Page 1 of 1 Name Value Range Interpretation Code Description Data Christin rce(s) Supporting Document(s) ID Date Data Source [id number] 08/23/2021 10:16:00 [place] [address] PHONE: [phone] FAX: [phone] Name .................. : CANDELARIO GREENWOOD Elsa Acct Number.................. : [id number] ROOM. ................. : TR-03 MR Number ................... : [id number] Stay type ............. : E/R Discharge Date......... ... : 08/22/21 Admit Date ......... : 08/22/21 Admit Phys .................... : SHENA Date of ....... : 1945 Family Phys ................... : HUI Phone .................. : [phone] Age ................................ : 76 Film# .................. .:[id number] Sex ................................. : F Unsigned transcriptions are preliminary reports and do not represent a medical or legal document [place] [id number] COMPLETE:08/23/21 07:14 MWB [id number] Reason (s): Trauma/Injury RADIOGRAPHS OF THE RIGHT ANKLE 4 VIEWS INDICATION: Trauma with pain COMPARISON: None. FINDINGS: Well-circumscribed oval bony density seen adjacent to the tip the medial malleolus. This measures 4 x 9 mm. It is well-corticated. This is an old avulsion fracture. No acute fracture or dislocation. Visible joint spaces are well preserved. No marginal osteophytes or erosions. No significant soft tissue abnormality. IMPRESSION: Old avulsion fracture medial malleolus. No acute fracture or dislocation. Electronically Reviewed and Signed By Kamlesh Allen MD , 08/23/21 10:16, JWNavid Transcribe Initials: SSR, Transcribe Date: 08/23/21 09:14, Dictation Date: Copy for: EMERGENCY DEPT via emaze Copy for: 710 MED REC DISCHARGED Page 1 of 1 Name Value Range Interpretation Code Description Data Christin rce(s) Supporting Document(s) ID Date Data Source [id number] 08/22/2021 10:09:00 PM EDT [facility] 1 OrderSheet [facility] Emergency Department [address] [place] [address] Phone #: ext- [phone] 08/22/2021 22:01 Patient: TIMO YEPEZ Sex: F : 1945 Age: 76yWEIGHT:68.0 kg (S) HEIGHT:65 inches (S) BMI:25.0ALLERGIES: No Known Drug AllergyCHIEF COMPLAINT: ankle, Rt, footDIAGNOSIS: Fracture of tibiaLAB ORDERSOrder Description Priority Entered Acknowledged InitialedDIAGNOSTIC STUDY ORDERSOrder Description Priority Entered Acknowledged InitialedFoot Complete STAT 22:08 08/22/2021 Ack'd: 22:09 22:11 Vitaly,Right Louisa Chatterjee Laura Katelyn(Oxygen?(No)) ; R.N. Reason for Study: Foot/Heel Pain, Trauma/InjuryAnkle Complete STAT 22:08 08/22/2021 Ack'd: 22:09 22:11 Vitaly,Right Louisa Chatterjee Laura Katelyn(Oxygen?(No)) ; R.N. Reason for Study: Trauma/InjuryMEDICATION/IV/DRIP/FLUID ORDERSOrder Description Priority Entered Acknowledged InitialedMotrin 600 mg PO 22:08 08/22/2021 Ack'd: 22:09 22:14 Evangelist,X1 dose: 600 mg Louisa Chatterjee Laura Laura R.N.(NOW x1) ; R.N.GENERAL ORDERSOrder Description Priority Entered Acknowledged InitialedCrutches 23:29 08/22/2021 23:30 Shena Blanca Victoria Laura R.N. ;Splint (LE) (Right) 23:29 08/22/2021 23:30 Evangelist,(ORTHO BOOT) Louisa Chatterjee R.N. ;[Electronically signed by Jeaneth Blanca R.N. (23:53 08/22/2021)] 2 OrderSheet [facility] Emergency Department [address] [place] [address] Phone #: ext- [phone] 08/22/2021 22:01 Patient: TIMO YEPEZ Sex: F : 1945 Age: 76y[Electronically signed by Louisa Chatterjee (00:05 08/23/2021)][Electronically locked by Jeaneth Blanca R.N. (23:53 08/22/2021)] Name Value Range Interpretation Code Description Data Christin rce(s) Supporting Document(s) ID Date Data Source [id number] 08/22/2021 10:09:00 PM EDT [facility] 1 Medication Reconciliation Report [facility] Emergency Department [address] [place] [address] Phone #: izw- [phone] 08/22/2021 22:01 Patient: TIMO YEPEZ Sex: F : 1945 Age: 76yWeight: 68.0 kgHeight/Length: 65 in.BMI: 25.0ALLERGIES: No Known Drug AllergyThe patient's Home Medications are listed below:CONTINUE TAKING THE FOLLOWING MEDICATIONS: Simvastatin Oral 20 mg, dailyThe source(s) of the original Home Medication information:Not obtained.The following Medications were given to the patient in the Emergency Department:Motrin [PO] PO 600 mg, administered: 22:14 08/22/2021The following Medications were prescribed to the patient:hydrocodone 5 mg-acetaminophen 325 mg tablet Take 1 tablet three times a day as needed for 4 days --for severe pain. Dispense 12 tablet. Refills: 0. Substitution permitted.[facility] [phone]. .IBU 600 mg tablet Take 1 tablet every eight hours as needed for pain for 10 days -- for pain / fever.Dispense 30 tablet. Refills: 0. Substitution permitted.[facility] - [address] [place], [place] [phone]. . -- Louisa Chatterjee Name Value Range Interpretation Code Description Data Christin rce(s) Supporting Document(s) ID Date Data Source [id number] 08/22/2021 10:09:00 PM EDT [place] [address] Medication Administration Record [facility] Emergency Department [address] [place] [address] Phone #: ext [phone] 08/22/2021 22:01 Patient: TIMO YEPEZ Sex: F : 1945 Age: 76yWeight: 68.0 kgHeight/Length: 65 inBMI: 25ALLERGIES: No Known Drug Allergy Date/Time Medication Administered Medication OrderedGiven MOTRIN [PO] (IBUPROFEN) Motrin 600 mg PO X1 dose: 63551:14 08/22/2021 Dose: 600 mg PO mg (NOW x1)Jeaneth Blanca R.N. Name Value Range Interpretation Code Description Data Christin rce(s) Supporting Document(s) ID Date Data Source [id number] 08/22/2021 10:09:00 PM EDT [place] [address] General Instructions [facility] Emergency Department [address] [place] [address] Phone #: ext- [phone] 08/22/2021 22:01 Patient: TIMO YEPEZ Sex: F : 1945 Age: 76yClosed displaced avulsion fracture of the medial malleolus of the right tibia.INSTRUCTIONSApply ice. Use crutches. Wear splint (ortho boot). Wear boot orthosis. Elevate affected areas abovechest level.(you have an avulsion fracture of the right medial maleolar area. use the ortho boot and use crutchesfor ambulation. take motrin for mild pain and vicdon as needed for severe pain. [facility]).Your Current Medications: Your current home medications have been reviewed.CONTINUE TAKING THE FOLLOWING MEDICATIONS:Simvastatin Oral : 20 mg daily.Prescription Medications:hydrocodone 5 mg-acetaminophen 325 mg tablet Take 1 tablet three times a day as needed for 4 days --for severe pain. Dispense 12 tablet. Refills: 0. Substitution permitted.[facility] [phone]. .IBU 600 mg tablet Take 1 tablet every eight hours as needed for pain for 10 days -- for pain / fever.Dispense 30 tablet. Refills: 0. Substitution permitted.[facility] - [address] [place] [phone]. .Follow-up:Follow up with your healthcare provider in two days. Reason for referral: evaluation. Summary of careprovided to patient via paper.Follow-up with: [facility], , , [address] [place] [address], ,[place], [address] Follow up tomorrow. Call for an appointment. Reason for referral: evaluation, treatment and avusionfracture of the distal medial maleolar area. ADDITIONAL INFORMATIONAnkle Fracture 2 General Instructions [facility] Emergency Department [address] [place] [address] Phone #: ext- [phone] 08/22/2021 22:01 Patient: TIMO YEPEZ Sex: F : 1945 Age: 76yYou have an ankle fracture. This means that one or more of the bones that make up the ankle jointare broken. This often causes pain, swelling, and bruising.A fracture is treated with a splint, cast, or special boot. It will take about 4 to 6 weeks for the fractureto heal. Surgery may be needed to fix severe injuries.Home care You will be given a splint, cast, or boot to prevent movement at the ankle joint. Unless you were told otherwise, use crutches or a walker. Don't put weight on the injured leg until cleared by your healthcare provider to do so. Crutches and walkers can be rented at many pharmacies and surgical or orthopedic supply stores. Don't put weight on a splint. It will break. Keep your leg raised to reduce pain and swelling. When sleeping, place a pillow under the injured leg. When sitting, support the injured leg so it is often. This is very important during the first 48 hours. Apply an ice pack over the injured area for no more than 15 to 20 minutes. Do this every 3 to 6 hours for the first 24 to 48 hours. Keep using ice packs 3 to 4 times a day for the next 2 to 3 days, then as needed to ease pain and swelling. To make an ice pack, put ice cubes in a plastic bag that seals at the top. Wrap the bag in a clean, thin towel or cloth. Never put ice or 3 General Instructions [facility] Emergency Department [address] [place] [address] Phone #: ext- [phone] 08/22/2021 22:01 Patient: TIMO YEPEZ Sex: F : 1945 Age: 76y an ice pack directly on the skin. You can place the ice pack directly over the cast or splint. As the ice melts, be careful that the cast or splint doesn't get wet. Keep the cast, splint, or boot completely dry at all times. Bathe with your cast, splint, or boot out of the water, protected with [address] 1 bag outside of the other. Tape each bag with duct tape at the top end or use rubber bands. Water can still leak in. So it's best to keep the cast, splint, or boot away from water. If a boot or fiberglass cast or splint gets wet, dry it with a executive chairman of the board on a cool setting. You may use [id number] pain medicine to control pain, unless another pain medicine was prescribed. Talk with your provider before using these medicines if you have chronic liver or kidney disease or ever had a stomach ulcer or GI (gastrointestinal) bleeding.Follow-up careFollow up with your healthcare provider in 1 week, or as advised. This is to be sure the bone ishealing correctly. If you were given a splint, it may be changed to a cast or boot at your follow-up visit.If X-rays were taken, you will be told of any new findings that may affect your care.When to seek medical adviceCall your healthcare provider right away if any of these occur: The plaster cast or splint becomes wet or soft The fiberglass cast or splint stays wet for more than 24 hours There is increased tightness, sore areas, or pain under the cast or splint Your toes become swollen, cold, blue, numb, or tingly The cast or splint becomes loose The cast or splint has a bad smell The cast or splint develops cracks or breaks [id number] [employer]. [address] [place] [address]. All rights reserved. This information is not intended as asubstitute for professional medical care. Always follow your healthcare professional's instructions. You have been given the following additional information: Ankle Fracture 4 General Instructions [facility] Emergency Department [address] [place] [address] Phone #: ext- [phone] 08/22/2021 22:01 Patient: TIMO YEPEZ Sex: F : 1945 Age: 76y(Electronically signed by Louisa Chatterjee 08/23/2021 00:05) Name Value Range Interpretation Code Description Data Christin rce(s) Supporting Document(s) ID Date Data Source [id number] 08/22/2021 10:09:00 PM EDT [facility] 1 Clinical Report - Nurses [facility] Emergency Department [address] [place] [address] Phone #: ext- [phone] 08/22/2021 22:01 Patient: TIMO YEPEZ Sex: F : 1945 Age: 76yTRIAGEArrived by private vehicle. Historian: patient.Acuity: LEVEL 4.Chief Complaint: INJURY TO RIGHT ANKLE and RIGHT FOOT.Alert. No acute distress.Occurred 15:08/22/2021. Mechanism of injury: sustained a twisting injury. ( PT was walking her dogand injured her right foot when the dog got excited and tried to run away. She is unable to bear weight toher right foot.).Treatment FRY COOK:Ice.SEPSIS SCREEN: SIRS SCREEN NEGATIVE. SEPSIS SCREEN NEGATIVE. No suspected or confirmedsigns of infection present.JADYN COMA SCORE: 15- eyes open- spontaneous (4); best verbal response- oriented (5); bestmotor response- obeys commands (6). --22:06 08/22/21 Rebecca Han R.N.22:08/22/21. BP: 146/95. HR: 80. RR: 16. O2 saturation: 100%. Temp: 97.8 F. Pain level now 5/10.--22:06 08/22/21 Rebecca Han R.N.Weight: 68 kg stated. Height/Length: 65 inches Per Patient. BMI: 25. --22:08/22/21 Rebecca Han R.N.MedicationsSimvastatin Oral 20 mg, daily. --22:08/22/21 Rebecca Han R.N.AllergiesNo Known Drug Allergy. --22:08/22/21 Rebecca Han R.N.PROBLEMS:Hypercholesterolemia. --22:08/22/21 Rebecca Han R.N.ADDITIONAL SURGERIES:Cataract Surgery.Eye surgery.Hysterectomy. --22:08/22/21 Rebecca Han R.N. 2 Clinical Report - Nurses [facility] Emergency Department [address] [place] [address] Phone #: ext- [phone] 08/22/2021 22:01 [id number] Sex[facility] : 1945 Age: 76y History PAST MEDICAL HX: Immunizations: up-to-date. SOCIAL HX: Never smoker. Occasional alcohol use. No drug use. The patient was offered HIV testing but declined and hepatitis C testing but declined. The patient has not traveled outside the [place] Infectious disease exposure: The patient was not exposed to C- diff, MRSA, VRE, CRE or Coronavirus. SELF HARM ASSESSMENT: Self harm assessment was performed. The patient answered "no" to the question(s) "Have you recently felt down, depressed, or hopeless?", "Do you have thoughts of harming or killing yourself?", "Do you have a plan for harming or killing yourself?", "Have you recently had thoughts about harming or killing others?", "Do you have any dangerous items in your possession?", "Have you noticed less interest or pleasure in doing things?", "Are you here because you tried to hurt yourself?" and "Have you ever tried to hurt yourself before today?". ABUSE ASSESSMENT: No report of abuse. NUTRITIONAL RISK ASSESSMENT: The nutritional risk assessment revealed no deficiencies. FUNCTIONAL ASSESSMENT: Functional assessment: no impairments noted. LEARNING NEEDS ASSESSMENT: The learning needs assessment revealed no barriers. FALL RISK ASSESSMENT: Fall risk assessment completed. No risk factors identified. SKIN INTEGRITY ASSESSMENT: Skin integrity risk assessment completed. No skin integrity risk identified. --22:08/22/21 Rebecca Han R.N. Interventions Identification band on patient. To treatment room. No allergy band on patient. --22:08/22/21 Rebecca Han R.N.PHYSICAL ASSESSMENTTo room via wheelchair.GENERAL / NEURO / PSYCH: Oriented X 4. Alert. Appears in no acute distress.EXTREMITIES: Limited ROM present. Capillary refill is less than 2 seconds in the extremities. Extremitypulses are within normal limits. Pain with weight bearing. Neuro-vascular status intact to the extremit y.Right ankle: tenderness and swelling. Right foot: tenderness.SKIN: Skin intact. Skin is warm and dry. --22:12 08/22/21 Martita Haider.NURSING PROGRESS NOTESReassurance given. Two patient identifiers checked. Call light placed in reach. Side rails up x 2. Bedplaced in lowest position. Brakes of bed on. Patient ready for evaluation. --22:12 08/22/21 Martita Haider 22:14 08/22/2021 Motrin (Ibuprofen) PO 600 mg given. Allergies verified and confirmed 5 rights. 3 Clinical Report - Nurses [facility] Emergency Department [address] [place] [address] Phone #: ext- [phone] 08/22/2021 22:01 Patient: TIMO YEPEZ Sex: F : 1945 Age: 76y Information reviewed with patient. Verbalizes understanding. --22:14 08/22/21 Jeaneth Blanca R.N. Patient transported to radiology by wheelchair with mask and tech. --22:50 08/22/21 Martita Haider Short leg stirrup medium velcro splint applied to right ankle and foot. Distal pulses intact, sensation intact and motor within normal limits. Patient tolerated the procedure well. Splinting applied by tech. --23:23 08/22/21 Martita Haider Ortho boot applied to right foot by nurse; distal pulses intact, sensation intact and motor function within normal limits. Patient fit with new crutches. Crutch training performed by nurse; the patient demonstrated proper use. --23:30 08/22/21 Jeaneth Blanca R.N.DISPOSITION / DISCHARGE Condition at departure: stable. No learning barriers present. Discharge instructions provided and reviewed with the patient. Reviewed warnings. Reviewed medication(s). Reviewed foot care, crutch walking and rest, ice, compression and elevation instructions. Reviewed referral to an orthopedic surgeon for followup. Patient verbalized understanding. Written instructions provided in Pryde[place]ig. The patient was discharged by the physician. She was discharged home and accompanied by олег tate. She left ambulatory and via private vehicle. Family member driving. --23:36 08/22/21 Jeaneth Blanca R.N. 23:35 08/22/21. BP: deferred. HR: deferred. RR: deferred. O2 saturation: deferred. Temp: deferred. Pain level now deferred. --23:36 08/22/21 Jeaneth Blanca R.N.Locked/Released at 08/22/2021 23:53 by Jeaneth Blanca R.N. Name Value Range Interpretation Code Description Data Christin rce(s) Supporting Document(s) ID Date Data Source [id number] 08/22/2021 10:09:00 PM EDT [facility] 1 Clinical Report - Physicians/Mid Levels [facility] Emergency Department [address] [place] [address] Phone #: ext- [phone] 08/22/2021 22:01 Patient: TIMO YEPEZ Sex: F : 1945 Age: 76y Time Seen: 22:01 08/22/2021. Arrived- By private vehicle. Historian- patient. Disposition decision: 23:18 08/22/2021.HISTORY OF PRESENT ILLNESS Chief Complaint: Injury to the foot and right ankle. The injury happened today 530 PM[address] Occurred [address] a [address]. The patient sustained a twisting injury. Patient is experiencing moderate pain. No injury to the head or neck. (patient was walking their dog and the dog tried to run which caused her to twist her right foot and ankle. she noted swelling on the right foot as well but she ahs been walking on it since the injury happened. she did not take any pain medication prior to coming to the ER).REVIEW OF SYSTEMSThe patient has had swelling. No tingling, weakness, numbness or skin laceration. She has no pain onweight bearing. All other systems reviewed and are negative.PAST HISTORYSee nurses notes. Tetanus im munization status is up-to-date. Problems: Hypercholesterolemia. Additional Surgeries: Hysterectomy. Medications: Simvastatin Oral 20 mg, daily. Allergies: No Known Drug Allergy.SOCIAL HISTORYNever smoker. Occasional alcohol use. No drug use.ADDITIONAL NOTESThe nursing notes have been reviewed.PHYSICAL EXAMVital Signs: 08/22/2021 22:01 BP: 146/95. MAP: 112. HR: 80. RR: 16. O2 saturation: 100%. Temp: 97.8 2 Clinical Report - Physicians/Mid Levels [facility] Emergency Department [address] [place] [address] Phone #: ext- [phone] 08/22/2021 22:01 Patient: TIMO YEPEZ Sex: F : 1945 Age: 76y F. Have been reviewed. Oxygen saturation normal. Appearance: Alert. Oriented X3. No acute distress. Extremities: Right ankle: mild tenderness localized to the lateral ligaments and medial ligaments. Limited ROM secondary to pain (diminished inversion and eversion). Neurovascular intact distally. No ligamentous laxity present. No joint effusion. No erythema, swelling, laceration, abrasion or ecchymosis. No puncture wound, foreign body or deformit y. Right foot: mild tenderness and swelling located in the plantar aspect of the foot. Neurovascular intact distally. No erythema, laceration, abrasion, ecchymosis or puncture wound. No limitation of weight bearing. Extremities otherwise negative. Neuro, Vascular and Tendons: Vascular status intact. Sensation intact. Motor intact. Tendon function intact.LABS, X-RAYS, AND EKGRt Ankle X-ray: (small avulsion fracture on the right medial maleolar area). Views: 3 view ankle series.Technique: good. The X-rays were independently viewed by me and interpreted contemporaneously byme. A comparison with prior films. Prior films were available.Rt Foot X-ray: No fracture. Normal alignment. No bony lesion, air in the soft tissue or foreign body.Soft tissues normal. Joint spaces normal. Views: 3 view foot series. Technique: good. The X-rayswere independently viewed by me and interpreted contemporaneously by me. Prior films were notavailable for comparison.PROGRESS AND PROCEDURESCourse of Care: 23:25 08/22/21. 76 y/o female presents to the ER with complain of pain on the right forand ankle after she got pulled by her dog while walking the dog. she twisted her foot and ankle. she hadtenderness on palpation on the right medial maleolar area. Xray of the right foot was normal but has asmall avulsion fracture on the right medial maleolar area..ortho boot placed and crutches given.advised no weight bearing activity. and follow up with [facility] orthopedics in am. Patient counseled in person regarding the patient's stable condition, test results, diagnosis and need for follow-up. Patient agrees with plan of care. 23:18. Disposition: Discharged home in good and improved condition (23:18). Condition: good and stable. Discharge decision based on the following: patient's condition is stable; patient's pain is controlled; patient's exam is improved; moderately abnormal test results; stable condition on repeat evaluation; social support is adequate; transportation is available; follow-up is available; clinical impres wayne is consistent with outpatient treatment.CLINICAL IMPRESSION Closed displaced avulsion fracture of the medial malleolus of the right tibia.INSTRUCTIONS 3 Clinical Report - Physicians/Mid Levels [facility] Emergency Department [address] [place], [place] [address] Phone #: ext- [phone] 08/22/2021 22:01 Patient: TIMO YEPEZ Sex: F : 1945 Age: 76y Apply ice. Use crutches. Wear splint (ortho boot). Wear boot orthosis. Elevate affected areas above chest level. (you have an avulsion fracture of the right medial maleolar area. use the ortho boot and use crutches for ambulation. take motrin for mild pain and vicdon as needed for severe pain. follow up with [facility] orth[facility] in am). Your Current Medications: Your current home medications have been reviewed. CONTINUE TAKING THE FOLLOWING MEDICATIONS: Simvastatin Oral : 20 mg daily. Prescription Medications: hydrocodone 5 mg- acetaminophen 325 mg tablet Take 1 tablet three times a day as needed for 4 days -- for severe pain. Dispense 12 tablet. Refills: 0. Substitution permitted. [phone] [address] [place], [place] [phone]. . IBU 600 mg tablet Take 1 tablet every eight hours as needed for pain for 10 days -- for pain / fever. Dispense 30 tablet. Refills: 0. Substitution permitted. [facility] [address] [place], [place] [phone]. . Follow-up: Follow up with your healthcare provider in two days. Reason for referral: evaluation. Summary of care provided to patient via paper. Follow-up with: [facility], , , [address], , [place], [address] Follow up tomorrow. Call for an appointment. Reason for referral: evaluation, treatment and avusion fracture of the distal medial maleolar area.(Electronically signed by Louisa Chatterjee 08/23/2021 00:05) Name Value Range Interpretation Code Description Data Christin rce(s) Supporting Document(s) ID Date Data Source [id number] 06/29/2021 07:41:00 AM EDT [facility] Patient Name: TIMO YEPEZ : 1945 Sex: F Pt Unit #: [id number] Location:[facility] Provider: Visit Date/Time: 06/29/21 Primary Insurance: [employer] Secondary Insurance: Self Pay Intake Vital Signs 06/29/21 07:41 Current Height 5 ft 4.25 in Current Weight 155 lb Weight Measurement Method Standing Scale BMI 26.4 BP 100/60 Blood Pressure Location Lt brachial Position Sitting Respiration 18 Pulse 65 Pulse Strength Normal Pulse Source Pulse Oximeter Pulse Oximetry (%) 99 Oxygen Delivery Method room air Intake Visit Reasons: Constipation Nurse Note: pt is here today for constipation follow up pt is doing much better since using miralax she isnt using it every day Is patient in pain?: No Allergies No Known Food Allergies Allergy (Unverified 03/02/21 07:44) NKDA Allergy (Unknown, Uncoded 01/28/14 17:06) Medications - Last Reconciled 06/29/21 by Estela Bowser NP cholecalciferol (vitamin D3) 25 mcg PO QDAY polyethylene glycol 3350 (Miralax) 17 grams PO QDAY simvastatin 20 mg PO QPM sucralfate 10 mL PO QID wheat dextrin (Benefiber Healthy Shape) 2 grams PO BID Fall Risk History of falls: No HIV Testing Offer - ages 13-64 Requirement for HIV testing offer been met?: Declines today. Pretest education received and acknowledged Coronavirus Screening Screening Are you currently positive or on isolation for COVID ?: No Do you have any NEW signs of one or more of the following?: no symptoms Do you have NEW signs of at least two of the following?: no symptoms HPI Additional HPI HPI Details: RECHECK CONSTIPATION. FEELING MUCH BETTER. TAKING FIBERCON AND STOOL SOFTNER SAW SURGEON FOR GALLSTONES. HAS DECIDED NOT TO HAVE SURGERY AT THIS TIME. NOT HAVING ANY RUQ PAIN. [facility] Medical History Difficulty swallowing pills Esophageal dysmotility Eustachian tube dysfunction Hyperlipidemia Osteoporosis Family History Mother Hypertension Father No problems noted. Social History Does the Patient have a Healthcare Proxy: Yes (BOTH DAUGHTERS) Does Patient have a DNR?: No Does Patient have a Living Will?: No Review of Systems Const Denies anorexia, Denies fatigue, Denies fever(s), Denies headache(s), Denies weight gain and Denies weight loss Eyes Denies itchy eyes ENT Denies dysphagia, Denies dizziness, Denies headache(s), Denies nasal congestion, Denies nasal discharge, Denies sinus pain and Denies sore throat Card Denies chest pain, Denies palpitations and Denies dyspnea Resp Denies cough, Denies dyspnea and Denies wheezing GI Denies abdominal pain, Denies dysphagia, Denies heartburn, Denies diarrhea, Denies nausea and Deniesvomiting Musc Denies back pain, Reports arthralgias (ARTHRITIS PAIN IN HANDS, OCCASIONALLY NECK.) and Denies limited range of motion Neuro Denies dizziness and Denies headache(s) Psych Denies anxiety, Denies change in appetite, Denies depression and Denies irritability Endo Denies fatigue and Denies palpitations Donny/Lymph Denies easy bleeding, Denies easy bruising and Denies lymphadenopathy Aller/Immun Denies urticaria, Denies itchy eyes, Denies seasonal rhinorrhea and Denies wheezing Exam Const General: cooperative, healthy appearing, no acute distress, well developed and well groomed Nutritional Appearance: well nourished Orientation: alert, awake and oriented x3 HENMT Head: normal to inspection and normocephalic Ears: hearing grossly normal bilaterally and external ears normal General nose exam: external nose normal and nares normal Face and sinus: normal facial exam Throat: posterior oropharynx normal Eyes General: appearance normal, both eyes and all related structures Eyelids: eyelids normal Conjunctivae: conjunctivae normal Sclera: sclerae normal Neck Neck: normal visual inspection, full ROM and no lymphadenopathy Neck mass: No Thyroid: thyroid normal Carotids: normal carotid upstroke Resp Effort Inspection: normal respiratory effort Auscultation: clear to auscultation bilaterally Cardio Palpation: normal PMI Rate: regular rate Rhythm: regular rhythm Heart Sounds: S1 normal and S2 normal Pulses: normal peripheral pulses GI Inspection: Yes normal to inspection Palpation: soft Percussion: normal to percussion Auscultation: normal bowel sounds Musc Cervical Spine: normal cervical lordosis and cervical ROM normal Thoracic/Lumbar Spine: thoracic and lumbar spine normal to inspection Skin Lesions: no lesions Rashes: no rashes Hair: normal Nails: normal Neuro General: patient alert, patient awake, patient oriented x3 and gait normal Cranial Nerves: CN's II-XII intact bilaterally Cognition: normal cognition Speech: speech normal Gait: normal gait Extrem General: normal to inspection and full ROM Psych Appearance: grossly normal and well kempt Mental Status: mental status grossly normal Speech and Movement: speech and movement normal Affect: normal affect Attitude: cooperative Thought Process: normal Thought Content: normal Insight: insight good Judgment: judgment good Assessment Plan Assessment Plan (1) Constipation: Status: Acute Code(s): K59.00 - Constipation, unspecified SNOMED Code(s): 23956144 Category: Medical Plan: CONSTIPATION HAS RESOLVED. CONT FIBERCON TABS KEEP APPT WITH [facility]STR[facility] RTC 3 MONTHS Medications: Discontinued sucralfate swish in mouth and swallow; use after food/drink Discontinued Reason: None 10 mL PO QID polyethylene glycol 3350 (Miralax) Discontinued Reason: Order 17 grams PO QDAY 238 grams 3RF Coding [place] [address] Est Pt Extended Comp Patient Type Established History Detailed Exam Detailed Medical Decision Making Moderate Complexity Diagnoses Constipation K59.00 <Electronically signed by Estela Bowser NP> 06/29/21 0817 Name Value Range Interpretation Code Description Data Christin rce(s) Supporting Document(s) ID Date Data Source [id number] 06/23/2021 01:53:00 PM EDT [facility] [address] [place] [address] [phone] NAME SEX PT STATUS ACCOUNT NUMBER TIMO YEPEZ REG REF [id number] ORDERING PHYSICIAN LOCATION MEDICAL RECORD NO. Vu Nash MD [id number] ATTENDING PHYSICIAN DATE OF DATE OF EXAM/TIME Estela Bowser [place] 1945 06/19/21909 TYPE / EXAM US Abd single organ/quadrant REASON FOR EXAM Gallstones Clinical History/Indication for Exam: Gallstones US ABDOMEN LIMITED RIGHT UPPER QUADRANT INDICATION: Gallstones TECHNIQUE: Real-time ultrasound of the right upper quadrant with image documentation. COMPARISON: None FINDINGS: Liver: Unremarkable. No mass. No intrahepatic bile duct dilation. Gallbladder: Multiple gallstones are seen in the gallbladder. Gallbladder wall is not thickened measuring approximately 1 mm. Common bile duct: The common bile duct measures 4 mm. There is no choledocholithiasis. No dilation. Pancreas: Unremarkable as visualized. Right kidney: The right kidney delores sures 8.5 x 4.3 x 3.8 cm. There is no hydronephrosis or mass. No stones. IMPRESSION: Cholelithiasis. REPORT SIGNATURE ON FILE 06/23/2021 (13:53 Eastern Time ) Signed by: Aster Messer M.D. Reported By Aster Messer MD on 06/23/21 135 Signed By Aster Messer MD on 06/23/21 135 Date Time CC: Estela Bowser; Aster Messer MD Techn: BUSMI Trans Dt/Tm: Trans by: DT Prt Dt/Tm: : Total DLP = 0.00 mGy-cm : Total Radiation Dose = 0.0000 mSv Lifetime Dose: 2.2506 mSv Name Value Range Interpretation Code Description Data Christin rce(s) Supporting Document(s) ID Date Data Source [id number] 06/19/2021 12:24:00 PM EDT [facility] Name Value Range Interpretation Code Description Data Christin rce(s) Supporting Document(s) Urea nitrogen [Mass/volume] in Serum or Plasma 14 mg/dL 9-23 N [facility] Sodium [Moles/volume] in Serum or Plasma 143 mmol/L 132-146 N [facility] Potassium [Moles/volume] in Serum or Plasma 4.1 mmol/L 3.5-5.5 N [facility] Chloride [Moles/volume] in Serum or Plasma 111 mmol/L 99-109 Above high normal [facility] Carbon dioxide, total [Moles/volume] in Serum or Plasma 29 mmol/L 20 -31 N [facility] Anion gap in Serum or Plasma 7 mmol/L 8-16 Below low normal [facility] Glucose [Mass/volume] in Serum or Plasma 90 mg/dL 74-106 N [facility] Creatinine 0.8 mg/dL 0.5-1.1 [facility] Glomerular filtration rate/1.73 sq M.pre dicted [Volume Rate/Area] in Serum or Plasma Greater Than 60 ABOVE 60 [facility] Alanine aminotransferase [Enzymatic acti vity/volume] in Serum or Plasma by With P-5'-P 22 U/L 10-49 [facility] ital Aspartate aminotransferase [Enzymatic ac tivity/volume] in Serum or Plasma by With P-5'-P 22 U/L 0-33 [facility] pital Alkaline phosphatase [Enzymatic activity/volume] in Serum or Plasma 54 U/L 45-129 N [facility] Calcium [Mass/volume] in Serum or Plasma 9.0 mg/dL 8.5-10.1 [facility] Bilirubin.total [Mass/volume] in Serum or Plasma 0.8 mg/dL 0.3-1.2 [facility] Albumin [Mass/volume] in Serum or Plasma by Bromocresol purple (BCP) dye binding method 3.9 g/dL 3.2-4.8 [facility] ital Protein [Mass/volume] in Serum or Plasma 6.4 g/dL 5.7-8.2 [facility] ID Date Data Source [id number] 06/20/2021 07:07:00 AM EDT [facility] Name Value Range Interpretation Code Description Data Christin rce(s) Supporting Document(s) 25-Hydroxyvitamin D2+25-Hydroxyvitamin D3 [Mass/volume ] in Serum or Plasma 24 ng/mL 30-100 [facility] Vitamin D Status 25-OH Vitamin D :Deficiency: <20 ng/mLInsufficiency: 20 - 29 ng/mLOptimal: > or = 30 ng/mLFor 25-OH Vitamin D testing on patients onD2-supplementation and patients for whom quantitationof D2 and D3 fractions is required, the QuestAssureD(TM)25- [place] VIT D, (D2,D3), LC/MS/MS is recommended: ordercode 50968 (patients >2yrs).See Note 1Note 1For additional information, please refer tohttp://education.Aseptia/faq/VJT854(This link is being provided for informational/educational purposes only.)THIS TEST WAS PERFORMED AT:[facility] [address]CORBY HUNT MD ID Date Data Source [id number] 06/19/2021 12:24:00 PM [facility] Name Value Range Interpretation Code Description Data Christin rce(s) Supporting Document(s) Triglycerides 75 mg/dL 0-150 [facility] Cholesterol 183 mg/dL 120-200 [facility] HDL Cholesterol 84 mg/dL [facility] HDL Less than 40 mg/dL: Major risk for CHDHDL Greater than 59 mg/dL: Low risk for CHD LDL Cholesterol, Calc 84 mg/dL 0-100 [facility] ID Date Data Source [id number] 06/16/2021 09:39:00 AM [facility] Name: TIMO YEPEZ : 1945 Age: 76 MR#: [id number] Admit Date: 06/16/21 Provider: Vu Nash MD Room #: Consulting Provider: Dictation Date: 06/16/21 Intake Vital Signs 3 06/16/21 09:40 Current Height 5 ft 4.25 in Current Weight 158 lb Weight Measurement Method Standing Scale BMI 26.9 BP 116/62 Blood Pressure Location Lt brachial Position Sitting Respiration 18 Pulse 74 Pulse Strength Normal Pulse Source Pulse Oximeter Temp 97.4 F L Temp S ource Temporal Artery Scan Pulse Oximetry (%) 98 Oxygen Delivery Method room air Intake Visit Reasons: Gallbladder problems Nurse Note: Patient is here to discuss gallstones found on US. [employer]vertising Job Titles Required: No Accompanied by: Self / Same as Patient Is patient in pain?: No Allergies No Known Food Allergies Allergy (Unverified 03/02/21 07:44) NKDA Allergy (Unknown, Uncoded 01/28/14 17:06) HIV Testing Offer - ages 13-64 Requirement for HIV testing offer been met?: Declines today. Pretest education received and acknowledged Coronavirus Screening Screening Are you currently positive or on isolation for COVID ?: No Do you have any NEW signs of one or more of the following?: no symptoms Do you have NEW signs of at least two of the following?: no symptoms HPI Additional HPI HPI Details: Ms. Yepez is a 76-year-old female with a past medical history significant for osteop orosis,hyperlipidemia, constipation, who comes today for evaluation of asymptomatic cholelithiasis. Patient states that she has been constipated all her life, and she was seen by her PMD for evaluation of her constipation, and abdominal x-rays were obtained that reported cholelithiasis. Patient denies abdominal pain, nausea or vomiting, or any other GI symptoms. Gallbladder Problems Current symptoms: Denies fever(s), nausea, vomiting or heartburn Associated symptoms: Denies nausea, vomiting or diarrhea [facility] Medical History Difficulty swallowing pills Esophageal dysmotility Eustachian tube dysfunction Hyperlipidemia Osteoporosis Family History Mother Hypertension Father No problems noted. Social History Does the Patient have a Healthcare Proxy: No Does Patient have a DNR?: No Does Patient have a Living Will?: No Review of Systems Const Denies anorexia, Denies excessive sweating, Denies fatigue, Denies fever(s), Denies headache(s), Denies weight gain and Denies weight loss Eyes Denies blurry vision, Denies change in vision, Denies dry eyes, Denies irritation, Denies itchy eyesand Denies loss of vision ENT Denies abnormal hearing, Denies dysphagia, Denies dizziness, Denies headache(s), Denies lip swelling, Denies nasal congestion, Denies nasal discharge, Denies disequilibrium, Denies sinus pain,Denies sore throat and Denies throat swelling Card Denies chest pain, Denies pedal edema, Denies lightheadedness, Denies palpitations and Denies dyspnea Resp Denies cough, Denies excessive phlegm production, Denies pain on inspiration, Denies dyspnea and Denies wheezing GI Denies abdominal pain, Denies change in bowel habits, Denies dysphagia, Denies early satiety, Deniesheartburn, Denies diarrhea, Denies nausea and Denies vomiting Musc Denies back pain, Denies arthralgias, Denies limited range of motion, Denies muscle cramps and Denies muscle weakness Skin/Breast Denies breast pain, Denies change in pigmentation, Denies lesions, Denies nail changes, Denies rash and Denies unusual bruising Neuro Denies abnormal hearing, Denies dizziness, Denies headache(s), Denies loss of vision, Denies memory loss, Denies paresthesias and Denies disequilibrium Psych Denies abnormal sleep pattern, Denies anxiety, Denies change in appetite, Denies depression, Denies irritability and Denies memory loss Endo Denies cold intolerance, Denies excessive sweating, Denies fatigue, Denies polyphagia, Denies polydipsia, Denies polyuria and Denies palpitations Donny/Lymph Denies easy bleeding, Denies easy bruising and Denies lymphadenopathy Aller/Immun Denies urticaria, Denies itchy eyes, Denies lip swelling, Denies seasonal rhinorrhea, Denies throat swelling and Denies wheezing Exam Const General: cooperative, healthy appearing, comfortable and no acute distress [facility] Head: normocephalic Neck Neck: no lymphadenopathy and supple Resp Effort Inspection: normal respiratory effort and no respiratory distress Auscultation: clear to auscultation bilaterally Cardio Rate: regular rate Rhythm: regular rhythm GI Palpation: soft and nontender Percussion: normal to percussion Auscultation: normal bowel sounds and other (No tenderness to deep palpation on any quadrant. Negative Hanks sign.) Skin Rashes: no rashes Neuro General: patient alert, patient awake and patient oriented x3 Psych Appearance: grossly normal Assessment Plan Assessment Plan (1) Gallbladder Problem: Code(s): K82.9 - Disease of gallbladder, unspecified Plan: Ms. Yepez was seen today for evaluation of asymptomatic cholelithiasis. She was seen by her PMD forevaluation of constipation. X-ray of abdomen was obtained that demonstrated cholelithiasis. Patient states that she is asymptomatic. She denies GI symptoms including abdominal pain, nausea orvomiting, dyspepsia, diarrhea. On exam, her abdomen is soft, and nontender. There is no guarding or rebound. There is no Hanks sign. As she is relatively healthy patient, with no risk factor for gallbladder cancer, she is not immunosuppressed, there is no real indication to perform a prophylactic cholecystectomy. I will obtain RUQ ultrasound to better characterize the gallbladder anatomy. We will discuss the results with the patient once obtained. She was instructed on the symptoms of gallbladder disease. Ample time was given for questions, all questions were answered. Orders: Orders US Abd single organ/quadrant 06/16/21 K80.20 - Calculus of gallbladder without cholecystitis withoutobstruction Coding Level of Care Code 65748 New Pt Intermediate Comp Exam Expanded Problem Focused Diagnoses Gallbladder Problem K82.9 Dictated by: <Electronically signed by Vu Nash MD> Vu Nash MD 06/17/21 1237 Vu Nash MD SIGNATURE DA Report Cosigners: D: VIVDA 06/16/21 0939 T: BELMO 06/16/2139 CC: Name Value Range Interpretation Code Description Data Christin rce(s) Supporting Document(s) ID Date Data Source [id number] 06/13/2021 11:38:00 AM EDT [facility] [address] [place] [address] [phone] NAME SEX PT STATUS ACCOUNT NUMBER TIMO YEPEZ REG REF [id number] ORDERING PHYSICIAN LOCATION MEDICAL RECORD NO. Estela TIMBER SETTER Niels RAD [id number] ATTENDING PHYSICIAN DATE OF DATE OF EXAM/TIME Estela Bowser NP 1945 06/13/21 / 1132 TYPE / EXAM Xray Abdomen 2V (Flat/Upright) REASON FOR EXAM constipation CLINICAL HISTORY: LOCATED WITHIN [facility] constipation TECHNIQUE: AP erect and supine views of the abdomen were obtained. COMPARISON: There are no prior studies available for comparison. FINDINGS: There are no dilated loops of bowel to suggest an obstruction. There is no evidence of free air. Mild constipation is present. Multiple small gallstones are identified. IMPRESSION: Mild constipation. Cholelithiasis is identified. Reported By Avila Bowles MD on 06/13/21 1138 Signed By Avila Bowles MD on 06/13/21 1140 Date Time CC: Avila Bowles M.D.; Estela Bowser Techn: PELBU Trans Dt/Tm: Trans by: DT Prt Dt/Tm: : Total DLP = 0.00 mGy-cm Fluoroscopy Time (in secs): Name Value Range Interpretation Code Description Data Christin rce(s) Supporting Document(s) ID Date Data Source [id number] 06/08/2021 02:38:00 PM EDT [facility] Patient Name: TIMO YEPEZ : 1945 Sex: F Pt Unit #: [id number] Location:[facility] Provider: Visit Date/Time: 06/08/21 Primary Insurance: [employer] Secondary Insurance: Self Pay Intake Vital Signs 06/08/21 14:38 Current Height 5 ft 4.5 in Current Weight 158 lb Weight Measurement Method Standing Scale BMI 26.6 BP 110/70 Blood Pressure Location Lt brachial Position Sitting Respiration 18 Pulse 78 Pulse Strength Normal Pulse Source Pulse Oximeter Pulse Oximetry (%) 98 Oxygen Delivery Method room air Intake Visit Reasons: Diarrhea Nurse Note: PT IS HERE TODAY FOR CONSTIPATION PT STATES SHE FEELS SHE IS BACKED UP SHE HAS TRIED CYRIL AND COLACE Is patient in pain?: No Allergies No Known Food Allergies Allergy (Unverified 03/02/21 07:44) NKDA Allergy (Unknown, Uncoded 01/28/14 17:06) Medications - Last Reconciled 06/08/21 by Estela Boswer NP cholecalciferol (vitamin D3) 25 mcg PO QDAY simvastatin 20 mg PO QPM sucralfate 10 mL PO QID wheat dextrin (Benefiber Healthy Shape) 2 grams PO BID Fall Risk History of falls: No Ambulatory Aid:: None Gait/Transferring:: Normal Medications:: No High Risk Medications HIV Testing Offer - ages 13-64 Requirement for HIV testing offer been met?: Declines today. Pretest education received and acknowledged Coronavirus Screening Screening Are you currently positive or on isolation for COVID ?: No Do you have any NEW signs of one or more of the following?: no symptoms Do you have NEW signs of at least two of the following?: no symptoms HPI Diarrhea History of Present Illness Details: C/O CONSTIPATION. STATES HAS HAD TROUBLE WITH CONSTIPATION "ALL MY LIFE" BUT PAST MONTH IT HAS GOTTEN WORSE. BM EVERY 2-3 DAYS BUT ONLY IF TAKES A LAXATIVE. FEELS "UNCOMFORTABLE BLOATED". NO NAUSEA OR VOMITING. SOMETIMES DIARRHEA AFTER TAKING A LAXATIVE. LBM: 06/07/21 X2. 1ST "NORMAL FORMED STOOL" 2ND TIME "DIARRHEA" NO BM YET TODAY. Associated symptoms: Denies abdominal pain, fatigue, fever(s), headache(s), dizziness, nausea, palpitations, vomiting or weight loss PFSH Medical History Difficulty swallowing pills Esophageal dysmotility Eustachian tube dysfunction Hyperlipidemia Osteoporosis Family History Mother Hypertension Father No problems noted. Social History Does the Patient have a Healthcare Proxy: No Does Patient have a DNR?: No Does Patient have a Living Will?: No Review of Systems Const Denies anorexia, Denies fatigue, Denies fever(s), Denies headache(s), Denies weight gain and Denies weight loss Eyes Denies itchy eyes ENT Denies dysphagia, Denies dizziness, Denies headache(s), Denies nasal congestion, Denies nasal discharge, Denies sinus pain and Denies sore throat Card Denies chest pain, Denies palpitations and Denies dyspnea Resp Denies cough, Denies dyspnea and Denies wheezing GI Denies abdominal pain, Denies dysphagia, Denies heartburn, Denies diarrhea, Denies nausea and Deniesvomiting Musc Denies back pain, Denies arthralgias and Denies limited range of motion Neuro Denies dizziness and Denies headache(s) Psych Denies anxiety, Denies change in appetite, Denies depression and Denies irritability Endo Denies fatigue and Denies palpitations Donny/Lymph Denies easy bleeding, Denies easy bruising and Denies lymphadenopathy Aller/Immun Denies urticaria, Denies itchy eyes, Denies seasonal rhinorrhea and Denies wheezing Exam Const General: cooperative, healthy appearing, no acute distress, well developed and well groomed Nutritional Appearance: well nourished Orientation: alert, awake and oriented x3 [facility] Head: normal to inspection and normocephalic Ears: hearing grossly normal bilaterally and external ears normal General nose exam: external nose normal and nares normal Face and sinus: normal facial exam Throat: posterior oropharynx normal Eyes General: appearance normal, both eyes and all related structures Eyelids: eyelids normal Conjunctivae: conjunctivae normal Sclera: sclerae normal Neck Neck: normal visual inspection, full ROM and no lymphadenopathy Neck mass: No Thyroid: thyroid normal Carotids: normal carotid upstroke Resp Effort Inspection: normal respiratory effort Auscultation: clear to auscultation bilaterally Cardio Palpation: normal PMI Rate: regular rate Rhythm: regular rhythm Heart Sounds: S1 normal and S2 normal Pulses: normal peripheral pulses GI Inspection: Yes normal to inspection Palpation: soft Percussion: normal to percussion Auscultation: normal bowel sounds Musc Cervical Spine: normal cervical lordosis and cervical ROM normal Thoracic/Lumbar Spine: thoracic and lumbar spine normal to inspection Skin Lesions: no lesions Rashes: no rashes Hair: normal Nails: normal Neuro General: patient alert, patient awake, patient oriented x3 and gait normal Cranial Nerves: CN's II-XII intact bilaterally Cognition: normal cognition Speech: speech normal Gait: normal gait Extrem General: normal to inspection and full ROM Psych Appearance: grossly normal and well kempt Mental Status: mental status grossly normal Speech and Movement: speech and movement normal Affect: normal affect Attitude: cooperative Thought Process: normal Thought Content: normal Insight: insight good Judgment: judgment good Assessment Plan Assessment Plan (1) Constipation: Status: Acute Code(s): K59.00 - Constipation, unspecified SNOMED Code(s): 89773700 Category: Medical (2) Difficulty swallowing: Status: Acute Code(s): R13.10 - Dysphagia, unspecified SNOMED Code(s): 36474535 Category: Medical Plan: LABS, FUA XRAY REFERRED TO GI. DR. CHANDRALA MIRALAX 1 CAPFUL DAILY. COLACE 100 MG DAILY RTC 2 WEEKS. Orders: Orders Xray Abdomen 2V (Flat/Upright) Today K59.00 - Constipation, unspecified Referrals Gastroenterology Referral K59.00 - Constipation, unspecified Medications: New polyethylene glycol 3350 (Miralax) 17 grams PO QDAY 238 grams 3RF C[place] [address] Est Pt Extended Comp Patient Type Established History Detailed Exam Detailed Medical Decision Making Moderate Complexity Diagnoses Constipation K59.00 Difficulty swallowing R13.10 Time Spent (min) 30 <Electronically signed by Estela Bowser NP> 06/08/21 1533 Name Value Range Interpretation Code Description Data Christin rce(s) Supporting Document(s) ID Date Data Source [id number] 04/05/2021 08:15:00 AM EDT [facility] Patient Name: TIMO YEPEZ : 1945 Sex: F Pt Unit #: [id number] Location:[facility] Provider: Visit Date/Time: 04/05/21 Primary Insurance: [employer] Secondary Insurance: Self Pay Intake Vital Signs 04/05/21 08:15 Current Height 5 ft 4.25 in Current Weight 158 lb 0.4 oz Weight Measurement Method Standing Scale BMI 26.9 BP 120/80 Blood Pressure Location Lt brachial Position Sitting Respiration 18 Pulse 70 Pulse Strength Normal Pulse Source Pulse Oximeter Pulse Oximetry (%) 99 Oxygen Delivery Method room air Intake-Medicare Annual Visit Reasons: Medicare Annual Wellness subsequent Nurse Note: pt is here today for annual pe pt would like Pneumovax Is patient in pain?: No Allergies No Known Food Allergies Allergy (Unverified 03/02/21 07:44) NKDA Allergy (Unknown, Uncoded 01/28/14 17:06) Feel stressed/tense/nervous/anxious/difficulty sleeping: not at all Medications - Last Reconciled 04/05/21 by Estela Bowser NP cholecalciferol (vitamin D3) 25 mcg PO QDAY pantoprazole 40 mg PO BID simvastatin 20 mg PO QPM sucralfate 10 mL PO QID wheat dextrin (Benefiber Healthy Shape) 2 grams PO BID Fall Risk History of falls: No Ambulatory Aid:: None Gait/Transferring:: Normal Medications:: No High Risk Medications Requirement for HIV testing offer been met?: Declines today. Pretest education received and acknowledged Hep C Testing Offered: Yes Hep C Requirement met: Patient reports past refusal SBIRT Annual Questionnaire Are you currently in recovery for alcohol or substance use?: No How many times in the past year have you had 4 or more drinks in a day?: None How many times in the past year have you used a recreational drug or used a prescription medication for nonmedical reasons?: None Coronavirus Screening Screening Are you currently positive or on isol ation for COVID ?: No Do you have any NEW signs of one or more of the following?: no symptoms Do you have NEW signs of at least two of the following?: no symptoms PFSH Medical History Difficulty swallowing pills Esophageal dysmotility Eustachian tube dysfunction Hyperlipidemia Osteoporosis Family History Mother Hypertension Father No problems noted. Social History Does the Patient have a [facility] Proxy: No Does Patient have a DNR?: No Does Patient have a Living Will?: No Medicare Annual Wellness Type Of Examation Type of Exam: Subsequent Wellness Exam Medication list Medications cholecalciferol (vitamin D3) 25 mcg PO QDAY pantoprazole 40 mg PO BID simvastatin 20 mg PO QPM sucralfate 10 mL PO QID wheat dextrin (Benefiber Healthy Shape) 2 grams PO BID Allergies Allergies No Known Food Allergies Allergy (Unverified 03/02/21 07:44) NKDA Allergy (Unknown, Uncoded 01/28/14 17:06) Current Diet Current diet: regular PHQ-2/9 Over the last 2 weeks, how often have you been bothered by any of the following problems? 1. Little interest or pleasure in doing things: not at all 2. Feeling down, depressed, or hopeless: not at all Total score: 0 Functional Assessment Bathing: Independent Dressing: Independent Toileting: Independent Transferring: Independent Continence: Independent Feeding: Independent Total Score: 6 Home Safety Home Safety: Reports [place]: No throw rugs and Stairs: Handrail available Hearing Hearing Left Ear: Normal Hearing Right Ear: Normal IADL Assessment Functional abilities: Up Go test, pt steady, Up Go test, within 30 sec, Pt independent w/phone,Pt independent w/transportation, Pt independent w/shopping, Pt independent w/housework, Pt independent w/meal preparation, Pt independent w/laundry, Pt independent w/medication and Pt independent w/finances Cognitive Evaluation Oriented to the date:: Yes Oriented to time:: Yes Oriented to place:: Yes Mood: grossly normal Affect: Normal Judgement: normal Needs caregiver for assistance: No Clock drawing: Yes Clock drawing with correct time: Yes 3 item recall: 3 (apple, bryan, table) HPI Additional HPI HPI Details: RECHECK. FEELS WELL. HAD UPPER ENDOSCOPY. ESOPHAGUS DILATED. DOESN'T FEEL IT HELPED MUCH. STILL HAVING SOME DIFFICULTY SWALLOWING. HAS F/U APPT WITH [facility]STR[facility] Review of Systems Const All systems reviewed are unremarkable except as noted in HPI and below Reports system reviewed and no additional complaints, except as documented, Denies chills, Denies fatigue, Denies fever(s) and Denies headache(s) Eyes Reports system reviewed and no additional complaints, except as documented ENT Reports dysphagia, Denies headache(s), Denies nasal congestion and Denies sore throat Card Denies chest pain and Denies dyspnea Resp Denies cough and Denies dyspnea GI Denies constipation, Reports dysphagia, Denies heartburn, Denies diarrhea, Denies nausea and Denies vomiting Genitourinary: Denies dysuria, urinary frequency, urinary incontinence or urinary urgency Musc Denies myalgias and Reports arthralgias Skin/Breast Reports system reviewed and no additional complaints, except as documented Neuro Reports system reviewed and no additional complaints, except as documented, Denies headache(s) and Denies paresthesias Psych Denies anxiety and Denies depression Endo Reports system reviewed and no additional complaints, except as documented and Denies fatigue Donny/Lymph Reports system reviewed and no additional complaints, except as documented Aller/Immun Reports system reviewed and no additional complaints, except as documented Exam Const General: cooperative, healthy appearing, no acute distress, well developed and well groomed Nutritional Appearance: well nourished Orientation: alert, awake and oriented x3 HENMT Head: normal to inspection Ears: hearing grossly normal bilaterally General nose exam: external nose normal Face and sinus: normal f acial exam Eyes Pupils: PERRL EOM: EOM intact bilaterally Neck Neck: normal visual inspection Neck mass: No Thyroid: thyroid normal Lymphatic: no lymphadenopathy noted Resp Effort Inspection: normal respiratory effort Auscultation: clear to auscultation bilaterally Cardio Palpation: normal PMI Rate: regular rate Rhythm: regular rhythm Heart Sounds: S1 normal and S2 normal GI Inspection: Yes normal to inspection Palpation: soft Percussion: normal to percussion Auscultation: normal bowel sounds General: No CVA tenderness Musc Cervical Spine: normal cervical lordosis Thoracic/Lumbar Spine: thoracic and lumbar spine normal to inspection Skin Lesions: no lesions Rashes: no rashes Neuro General: patient alert, patient oriented x3 and moves all extremities Cranial Nerves: CN's II-XII intact bilaterally Extrem General: normal to inspection Psych Appearance: grossly normal and well kempt Mental Status: mental status grossly normal Speech and Movement: speech and movement normal Mood: congruent mood Affect: normal affect Attitude: cooperative Thought Process: normal Thought Content: normal Insight: insight good Judgment: judgment good Immunizations pneumococcal 23-nathan ps vaccine Performing Provider: Estela Bowser NP Administered by: Shruti Callahan on 04/05/21 08:39 Dose Route Admin Location Lot Number Expiration Date [facility] Manufactu rer 0.5 mL IM Right deltoid [id number] 04/30/22 1990-1902-08 [employer] D VIS Given Date VIS Provided VIS Publication Date 04/05/21 Single Vaccine 19 Eligibility Eligibility Date Funding Source Not [facility] Eligible 04/05/21 Private Assessment Plan Assessment Plan (1) Medicare annual wellness visit, subsequent: Code(s): Z00.00 - Encounter for general adult medical examination without abnormal findings Plan - Estela Bowser NP: PN EUMONIA SHOT TODAY. DECLINES MAMMO. RTC 6 MONTHS (2) Hyperlipidemia: Status: Acute Code(s): E78.5 - Hyperlipidemia, unspecified Category: Medical Qualifiers: Hyperlipidemia type: mixed hyperlipidemia Qualified Code(s): E78.2 - Mixed hyperlipidemia Plan - Estela Bowser NP: CONT CURRENT MEDS. REPEAT CMP, LIPIDS IN 3 MONTHS Orders Other Orders: Orders: INJ - Pneumovax Vaccine Today Z23 Vitamin D 25-OH 3 Months M81.0 Coding Level of Care Code Established Pt Medicare AWV subsequent Patient Type Established Exam Detailed Medical Decision Making Moderate Complexity Diagnoses Medicare annual wellness visit, subsequent Z00.00 Hyperlipidemia E78.2 Hyperlipidemia type: mixed hyperlipidemia Time Spent (min) 40 <Electronically signed by Estela Bowser NP> 04/05/21 0903 Name Value Range Interpretation Code Description Data Christin rce(s) Supporting Document(s) ID Date Data Source [id number] 03/15/2021 09:05:00 AM EDT [facility] Name Value Range Interpretation Code Description Data Christin rce(s) Supporting Document(s) Leukocytes [#/volume] in Blood by Automated count 4.7 10*3/uL 4.45-10 .71 N [facility] Erythrocytes [#/volume] in Blood by Automated count 4.78 10*6/uL 4.20 -5.40 N [facility] Hemoglobin [Moles/volume] in Blood 13.9 g/dL 10.7-15.4 N [facility] Hematocrit [Volume Fraction] of Blood by Automated count 43.6 % 3 7-47 N [facility] Erythrocyte mean corpuscular volume [Ent itic volume] in Cord blood by Automated count 91 fL 80-96 N [facility] ital Erythrocyte mean corpuscular hemoglobin [Entitic mass] by Au tomated count 29 pg 27-31 N [facility] Erythrocyte mean corpuscular hemoglobin concentration [Mass/volume] in Cord blood 32 g/dL 33-37 Below low normal [facility] Erythrocyte distribution width [Entitic volume] by Automated count 13 % 11-15 N [facility] Platelets [#/volume] in Blood by Automated count 293 10*3/uL 130-472 N [facility] Platelet mean volume [Entitic volume] in Blood 10.8 fL 9.1-13.1 N [facility] Neutrophils/100 leukocytes in Blood by Automated count 65.3 % 41- 77 N [facility] Neutrophils [#/volume] in Blood by Automated count 3.1 U 1.7-7.6 N [facility] Lymphocytes/100 leukocytes in Blood by Automated count 25.3 % 14- 46 N [facility] Lymphocytes [#/volume] in Blood by Automated count 1.2 U 0.6-4.6 N [facility] Monocytes/100 leukocytes in Blood by Automated count 7.8 % 4-12 N [facility] Monocytes [#/volume] in Blood by Automated count 0.4 U 0.2-1.2 N [facility] Eosinophils/100 leukocytes in Blood by Automated count 0.8 % 0-7 N [facility] Eosinophils [#/volume] in Blood by Automated count 0.0 U 0.0-0.5 N [facility] Basophils/100 leukocytes in Blood by Automated count 0.4 % 0.4-1 .3 N [facility] Basophils [#/volume] in Blood by Automated count 0.0 U 0.0-0.2 N [facility] NUCLEATED RED BLOOD CELL 0 % [facility] NUCLEATED RED BLOOD CELL# 0 U [facility] Immature granulocytes [Presence] in Blood by Automated count 0-2 N [facility] Immature granulocytes [#/volume] in Blood by Automated count 0.0 U 0-0.1 N [facility] Manual Differential panel - Blood NO [facility] ID Date Data Source [id number] 03/15/2021 09:13:00 AM EDT [facility] Name Value Range Interpretation Code Description Data Christin rce(s) Supporting Document(s) Urea nitrogen [Mass/volume] in Serum or Plasma 12 mg/dL 9-23 N [facility] Sodium [Moles/volume] in Serum or Plasma 142 mmol/L 132-146 [facility] Potassium [Moles/volume] in Serum or Plasma 4.2 mmol/L 3.5-5.5 [facility] Chloride [Moles/volume] in Serum or Plasma 108 mmol/L 99-109 [facility] [facility] Carbon dioxide, total [Moles/volume] in Serum or Plasma 30 mmol/L 20 -31 [facility] Anion gap in Serum or Plasma 8 mmol/L 8-16 [facility] Glucose [Mass/volume] in Serum or Plasma 91 mg/dL 74-106 [facility] Creatinine 0.8 mg/dL 0.5-1.1 [facility] Glomerular filtration rate/1.73 sq M.pre dicted [Volume Rate/Area] in Serum or Plasma Greater Than 60 ABOVE 60 [facility] Alanine aminotransferase [Enzymatic acti vity/volume] in Serum or Plasma by With P-5'-P 27 U/L 10-49 [facility] ital Aspartate aminotransferase [Enzymatic ac tivity/volume] in Serum or Plasma by With P-5'-P 20 U/L 0-33 [facility] pital Alkaline phosphatase [Enzymatic activity/volume] in Serum or Plasma 65 U/L 45-129 [facility] Calcium [Mass/volume] in Serum or Plasma 9.3 mg/dL 8.5-10.1 [facility] Bilirubin.total [Mass/volume] in Serum or Plasma 0.9 mg/dL 0.3-1.2 [facility] Albumin [Mass/volume] in Serum or Plasma by Bromocresol purple (BCP) dye binding method 4.1 g/dL 3.2-4.8 [facility] Protein [Mass/volume] in Serum or Plasma 7.3 g/dL 5.7-8.2 [facility] ID Date Data Source [id number] 03/16[facility]21 07:[facility] Name Value Range Interpretation Code Description Data Christin rce(s) Supporting Document(s) 25-Hydroxyvitamin D2+25-Hydroxyvitamin D3 [Mass/volume ] in Serum or Plasma 11 ng/mL 30-100 [facility] Vitamin D Status 25-OH Vitamin D :Deficiency: <20 ng/mLInsufficiency: 20 - 29 ng/mLOptimal: > or = 30 ng/mLFor 25-OH Vitamin D testing on patients onD2-supplementation and patients for whom quantitationof D2 and D3 fractions is required, the QuestAssureD(TM)25- [place] VIT D, (D2,D3), LC/MS/MS is recommended: ordercode 46329 (patients >2yrs).See Note 1Note 1For additional information, please refer [email or web address].[email or web address]/faq/CIC393(This link is being provided for informational/educational purposes only.)THIS TEST WAS PERFORMED AT:[facility] [id number] HUNT MD ID Date Data Source [id number] 03/15/2021 09:13:00 AM [facility] Name Value Range Interpretation Code Description Data Christin rce(s) Supporting Document(s) Triglycerides 87 mg/dL 0-150 [facility] Cholesterol 230 mg/dL 120-200 Above high normal [facility] HDL Cholesterol 101 mg/dL [facility] HDL Less than 40 mg/dL: Major risk for CHDHDL Greater than 59 mg/dL: Low risk for CHD LDL Cholesterol, Calc 112 mg/dL 0-100 Above high normal [facility] ID Date Data Source [id number] 03/13/2021 12:45:00 PM EDT [facility] ([facility], ) Name Value Range Interpretation Code Description Data Christin rce(s) Supporting Document(s) Surgical pathology study Laboratory test result [facility] ([facility], ) FINAL DIAGNOSIS A - Esophagus, lower, biopsy: Fragments of squamous mucosa with mild chronic inflammation. No evidence for eosinophilic esophagitis. B - Esophagus, upper, biopsy: Fragments of squamous mucosa with no significant pathologic changes. No evidence for eosinophilic esophagitis. 03/14/20211413 CLINICAL DIAGNOSIS Dysphagia 03/14/2021807 GROSS DIAGNOSIS A - Received in formalin labeled "lower esophageal biopsy" and consists of three fragments of beckham tissue 0.3 x 0.2 x 0.2 cm. in aggregate. All in one. B - Received in formalin labeled "upper esophageal biopsy" and consists of two fragments of beckham tissue 0.4 x 0.3 x 0.2 cm. in aggregate. All in one. -SV 03/14/2021 - 807 Signed ANGEL QUIJANO MD 03/14/2021 1420 ID Date Data Source [id number] 03/08/2021 12:40:00 PM EDT [facility] Name Value Range Interpretation Code Description Data Christin rce(s) Supporting Document(s) SARS-CoV-2 (COVID-19) RNA [Presence] in Respiratory specimen by SYMONE with probe detection Not Detected [facility] This lab was ordered by [facility] and reported by [employer]. ID Date Data Source [id number] 03/02/2021 07:40:00 AM EDT [facility] Patient Name: TIMO YEPEZ : 1945 Sex: F Pt Unit #: [id number] Location:[facility] Provider: Visit Date/Time: 03/02/21 Primary Insurance: [employer] Secondary Insurance: Self Pay Intake Vital Signs 03/02/21 07:40 Current Height 5 ft 4 in Current Weight 159 lb Weight Measurement Method Standing Scale BMI 27.3 BP 100/60 Blood Pressure Location Lt brachial Position Sitting Respiration 18 Pulse 74 Pulse Strength Normal Pulse Source Pulse Oximeter Pulse Oximetry (%) 98 Oxygen Delivery Method room air Intake Visit Reasons: Medication check Nurse Note: pt is here today for discussion about her pills she states she takes Fosamax she has a swallowing issue and would like to discuss further about changing this Is patient in pain?: No Allergies No Known Food Allergies Allergy (Unverified 03/02/21 07:44) NKDA Allergy (Unknown, Uncoded 01/28/14 17:06) Medications - Last Reconciled 03/02/21 by Estela Bowser NP alendronate TAKE 1 TABLET BY MOUTH 1 TIME PER WEEK cetirizine (Zyrtec) 10 mg PO QDAY fluticasone propionate 50 mcg/actuation (Flonase Allergy Relief) 2 sprays intranasal QDAY simvastatin 10 mg PO QDAY Fall Risk History of falls: No Ambulatory Aid:: None Gait/Transferring:: Normal Medications:: No High Risk Medications HIV Testing Offer - ages 13-64 Requirement for HIV testing offer been met?: Declines today. Pretest education received and acknowledged Coronavirus Screening Screening Are you currently positive or on isolation for COVID ?: No Do you have any NEW signs of one or more of the following?: no symptoms Do you have NEW signs of at least two of the following?: no symptoms HPI Hyperlipidemia HERE FOR RECHECK ON HIGH CHOLESTEROL FEELS WELL. Type of Visit: follow-up elevated lipid profile denies headache(s), pedal edema, chest pain, dyspnea or myalgias reports a low sodium diet. Medication compliance: is good Most Recent Cardiac Tests: No Data to Display [facility] Medical History (Updated 03/02/21 @ 07:49 by Estela Bowser NP) Difficulty swallowing pills Esophageal dysmotility Eustachian tube dysfunction Hyperlipidemia Osteoporosis Family History Mother Hypertension Father No problems noted. Social History Does the Patient have a Healthcare Proxy: No Does Patient have a DNR?: No Does Patient have a Living Will?: No Review of Systems Const All systems reviewed are unremarkable except as noted in HPI and below Reports system reviewed and no additional complaints, except as documented, Denies chills, Denies fatigue, Denies fever(s) and Denies headache(s) Eyes Reports system reviewed and no additional complaints, except as documented ENT Denies headache(s), Denies nasal congestion and Denies sore throat Card Denies chest pain, Denies pedal edema and Denies dyspnea Resp Denies cough and Denies dyspnea GI Denies constipation, Denies diarrhea, Denies nausea and Denies vomiting Genitourinary: Denies dysuria, urinary frequency or urinary urgency Musc Reports system reviewed and no additional complaints, except as documented and Denies myalgias Skin/Breast Reports system reviewed and no additional complaints, except as documented Neuro Reports system reviewed and no additional complaints, except as documented, Denies headache(s) and Denies paresthesias Psych Denies anxiety and Denies depression Endo Reports system reviewed and no additional complaints, except as documented Donny/Lymph Denies easy bleeding and Denies easy bruising Aller/Immun Reports seasonal rhinorrhea Exam Const General: cooperative, healthy appearing, no acute distress, well developed and well groomed Nutritional Appearance: well nourished Orientation: alert, awake and oriented x3 HENMT Head: normal to inspection Ears: hearing grossly normal bilaterally Throat: posterior oropharynx normal Eyes Pupils: PERRL EOM: EOM intact bilaterally Neck Neck: normal visual inspection, full ROM and no lymphadenopathy Neck mass: No Thyroid: thyroid normal Carotids: normal carotid upstroke Resp Effort Inspection: normal respiratory effort Auscultation: clear to auscultation bilaterally Percussion: percussion normal Cardio Palpation: normal PMI Rate: regular rate Rhythm: regular rhythm Heart Sounds: S1 normal and S2 normal Pulses: normal peripheral pulses GI Inspection: Yes normal to inspection Palpation: soft General: No CVA tenderness Musc Cervical Spine: normal cervical lordosis Thoracic/Lumbar Sp ine: thoracic and lumbar spine normal to inspection Skin Lesions: no lesions Rashes: no rashes Neuro General: patient alert, patient oriented x3 and moves all extremities Extrem General: normal to inspection and no edema Psych Appearance: grossly normal and well kempt Mental Status: mental status grossly normal Speech and Movement: speech and movement normal Mood: congruent mood Affect: normal affect Attitude: cooperative Thought Process: normal Thought Content: normal Insight: insight good Judgment: judgment good Assessment Plan Assessment Plan (1) Hyperlipidemia: Status: Acute Code(s): E78.5 - Hyperlipidemia, unspecified SNOMED Code(s): 83473090 Category: Medical Qualifiers: Hyperlipidemia type: mixed hyperlipidemia Qualified Code(s): E78.2 - Mixed hyperlipidemia Plan - Estela Bowser NP: Patient education: Hyperlipidemia is a high level of lipids (fats) in your blood. These lipids include cholesterol and/or triglycerides. Lipids are made by your body. They also come from the foods you eat. Your bodyneeds lipids to work properly, but high levels increase your risk for heart disease, heart attack, and stroke. Manage hyperlipidemia: It is recommended that you make lifestyle changes to help decrease your lipid levels. You may also need to take medicine to lower your lipid levels. Some of the lifestyle changes you may need to makeinclude the following: Maintain a healthy weight. Ask your healthcare provider how much you should weigh. Ask him or her tohelp you create a weight loss plan if you are overweight. Weight loss can decrease your cholesterol and triglyceride levels. Exercise as directed. Exercise lowers your cholesterol levels and helps you maintain a healthy weight. Get 30 minutes or more of aerobic exercise 4 to 6 days each week. You can split your exercise into four 10-minute workouts instead of 30 minutes at one time. Examples of aerobic exercises include walking briskly, swimming, or riding a bike. Work with your healthcare provider toplan the best exercise program for you.. Eat heart-healthy foods. Talk to your dietitian about a heart-healthy diet. The following will help you manage hyperlipidemia: Decrease the total amount of fat you eat. Choose lean meats, fat-free or 1% fat milk, and low-fat dairy products, such as yogurt and cheese. Limit or do not eat red meat. Red meats are high in fat and cholesterol. Replace unhealthy fats with healthy fats. Unhealthy fats include saturated fat, trans fat, and cholesterol. Choose soft margarines that are low in saturated fat and have little or no trans fat. Monounsaturated fats are healthy fats. These are found in olive oil, canola oil, avocado, and nuts. Polyunsaturated fats are also healthy. These are found in fish, flaxseed, walnuts, and soybeans. Eat 5 or more servings of fruits and vegetables every day. They are low in calories and fat and a good source of essential vitamins. Include dark green, red, and orange vegetables. Examples include spinach, kale, broccoli, and carrots. Eat foods high in fiber. Fiber can help lower your cholesterol levels. Choose whole grain, high-fiber foods. Good choices include whole-wheat breads or cereals, beans, peas, fruits, and vegetables. KEEP SCHEDULED APPT FOR PE Orders Other Medications: Discontinued: 2 cetirizine (Zyrtec) Discontinued Reason: MD Order 10 mg PO QDAY 30 tabs 3RF fluticasone propionate 50 mcg/actuation (Flonase Allergy Relief) administer into each nostril Discontinued Reason: MD Order 2 sprays intranasal QDAY 1 unit 5RF alendronate Discontinued Reason: MD Order TAKE 1 TABLET BY MOUTH 1 TIME PER WEEK 12 tabs 3RF Other Orders: Orders: CMP Today E78.5 LIPID PANEL Today E78.5 CBC W AUTO DIFF Today E78.5 Vitamin D 25-OH Today M81.0 C[place] [address] Est Pt Extended Comp Patient Type Established History Detailed Exam Detailed Medical Decision Making Moderate Complexity Diagnoses Hyperlipidemia E78.2 Hyperlipidemia type: mixed hyperlipidemia Time Spent (min) 20 <Electronically signed by Estela Bowser NP> 03/02/21 0819 Name Value Range Interpretation Code Description Data Christin rce(s) Supporting Document(s) ID Date Data Source [id number] 01/10/2021 01:52:00 PM [facility] Patient Name: TIMO YEPEZ : 1945 Sex: F Pt Unit #: [id number] Location:[facility] Provider: Visit Date/Time: 01/10/21 Primary Insurance: [employer] Secondary Insurance: Self Pay Intake Nurse Note Intake Visit Reasons: Immunizations (nurse Visit) Nurse Note: pt received second shingrix in LEFT arm without any issues Immunizations Shingrix (PF) 50 mcg/0.5 mL Performing Provider: Estela Bowser NP Administered by: Shruti Callahan on 01/10/21 13:54 Dose Route Admin Location Lot Number Expiration Date NDC Manufactu rer 0.5 mL IM Left deltoid [id number] 09/10/22 [id number] [employer] VIS Given Date VIS Provided VIS Publication Date 01/10/21 Single Vaccine 19 Eligibility Eligibility Date Funding Source Not [facility] Eligible 01/10/21 Private Assessment Plan Orders Other Orders: Orders: INJ - Shingrix Vaccine Today Z23 <Electronically signed by Estela Bowser NP> 01/10/21 1408 Name Value Range Interpretation Code Description Data Christin rce(s) Supporting Document(s) ID Date Data Source [id number] 10/10/2020 10:01:00 AM EST [facility] [address] [place] [id number] [phone] NAME SEX PT STATUS ACCOUNT NUMBER TIMO YEPEZ REG REF [id number] ORDERING PHYSICIAN LOCATION MEDICAL RECORD NO. Estela FORBES Niels RAD [id number] ATTENDING PHYSICIAN DATE OF DATE OF EXAM/TIME Estela Bowser NP 1945 10/10/20844 TYPE / EXAM Xray Esophagram (BS)-SINGLE CO REASON FOR EXAM DIFFICULTY SWALLOWING CLINICAL HISTORY: 75 years of age, Female, difficulty swallowing. TECHNIQUE: A double contrast barium esophagram was performed. A total of 99 images were obtained. COMPARISON: None available. FINDINGS: The esophagus is normal in course and caliber with no significant areas of narrowing. Mild narrowing is demonstrated in the lower cervical spine related to mildly prominent anterior osteophytes. Mild dysmotility is demonstrated, with tertiary contractions as well as delayed emptying of esophagus. The gastroesophageal junction is patent. There is no hiatal hernia demonstrated in this study. No gastroesophageal reflux was seen following Valsalva maneuvers. IMPRESSION: 1. Presbyesophagus with mild delayed emptying. 2. No significant focal narrowing. 3. No evidence for reflux. Reported By Paul Ellis DO on 10/10/20 1001 Signed By Paul Ellis DO on 10/10/20 1006 Date Time CC: Paul Ellis DO; Estela Bowser Techn: EBEBR Trans Dt/Tm: Trans by: DT Prt Dt/Tm: [id number]: Total DLP = 0.00 mGy-cm Fluoroscopy Time (in secs): 62 Name Value Range Interpretation Code Description Data Christin rce(s) Supporting Document(s) ID Date Data Source [id number] 10/06/2020 08:57:00 AM EST [facility] Patient Name: TIMO YEPEZ : 1945 Sex: F Pt Unit #: [id number] Location:[facility] Provider: Visit Date/Time: 10/06/20 Primary Insurance: [employer] Secondary Insurance: Self Pay Intake Vital Signs 10/06/20 08:58 Current Height 5 ft 4 in Current Weight 159 lb Weight Measurement Method Standing Scale BMI 27.3 BP 120/80 Blood Pressure Location Lt brachial Position Sitting Respiration 18 Pulse 74 Pulse Strength Normal Pulse Source Pulse Oximeter Pulse Oximetry (%) 98 Oxygen Delivery Method room air Intake Visit Reasons: Osteoporosis Nurse Note: pt is here today for osteoporosis Is patient in pain?: No Allergies NKDA Allergy (Unknown, Uncoded 01/28/14 17:06) Medications alendronate 70 mg PO 1XW cetirizine (Zyrtec) 10 mg PO QDAY fl uticasone propionate 50 mcg/actuation (Flonase Allergy Relief) 2 sprays intranasal QDAY simvastatin 10 mg PO QDAY HIV Testing Offer - ages 13-64 Requirement for HIV testing offer been met?: Declines today. Pretest education received and acknowledged Coronavirus Screening Screening Have you traveled outside of [facility] or [facility] in the last 14 days.: No Has patient experienced coronavirus symptoms: No PFSH Shingrix (PF) 50 mcg/0.5 mL Performing Provider: Estela Bowser NP Administered by: Shruti Callahan on 10/06/20 09:35 Social History Does the Patient have a Healthcare Proxy: No Does Patient have a DNR?: No Does Patient have a Living Will?: No HPI Additional HPI HPI Details: RECHECK. NEEDS MED REFILLS. FEELS WELL BUT IS HAVING TROUBLE SWALLOWING PILLS. FEELS LIKE THEY GET STUCK IN THROAT. DOES NOT HAVE DIFFICULTY SWALLOWING SOLID FOODS/LIQUIDS Review of Systems Const All systems reviewed are unremarkable except as noted in HPI and below Reports system reviewed and no additional complaints, except as documented Eyes Reports system reviewed and no additional complaints, except as documented ENT Reports dysphagia (PILLS), Reports nasal discharge (ALLERGIES) and Reports post nasal drip Card Reports system reviewed and no additional complaints, except as documented Resp Reports system reviewed and no additional complaints, except as documented GI Reports system reviewed and no additional complaints, except as documented and Reports dysphagia (PILLS) Genitourinary: Reports system reviewed and no additional complaints, except as documented Musc Reports system reviewed and no additional complaints, except as documented Details: ARTHRITIS IN HANDS Skin/Breast Reports system reviewed and no additional complaints, except as documented Neuro Reports system reviewed and no additional complaints, except as documented Psych Reports system reviewed and no additional complaints, except as documented Endo Reports system reviewed and no additional complaints, except as documented Donny/Lymph Reports system reviewed and no additional complaints, except as documented Aller/Immun Reports system reviewed and no additional complaints, except as documented Exam Const General: cooperative, healthy appearing, no acute distress, well developed and well groomed Nutritional Appearance: well nourished Orientation: alert, awake and oriented x3 HENMT Head: normal to inspection and nor mocephalic Ears: hearing grossly normal bilaterally, external ears normal, TM's normal bilaterally and EAC's normal General nose exam: external nose normal, nares normal and no nasal discharge Face and sinus: normal facial exam Throat: posterior oropharynx normal Eyes General: appearance normal, both eyes and all related structures Periorbital: periorbital findings normal Eyelids: eyelids normal Conjunctivae: conjunctivae normal Sclera: sclerae normal Pupils: PERRL EOM: EOM intact bilaterally Direct ophthalmoscopy: normal light reflex Other: SEE'S EYE DOC YEARLY Neck Neck: normal visual inspection, full ROM, no lymphadenopathy, supple and no JVD present Neck mass: No Thyroid: thyroid normal Carotids: normal carotid upstroke Resp Effort Inspection: normal respiratory effort Auscultation: clear to auscultation bilaterally Percussion: percussion normal Cardio Palpation: normal PMI Rate: regular rate Rhythm: regular rhythm Heart Sounds: S1 normal and S2 normal Pulses: normal peripheral pulses GI Inspection: Yes normal to inspection Palpation: soft and no hepatosplenomegaly Percussion: normal to percussion Auscultation: normal bowel sounds General: No CVA tenderness Musc Cervical Spine: normal cervical lordosis and cervical ROM normal Thoracic/Lumbar Spine: thoracic and lumbar spine normal to inspection and thoraco-lumbar ROM normal Skin Lesions: no lesions Rashes: no rashes Hair: normal Nails: normal Neuro General: patient alert, patient awake, patient oriented x3, gait normal and moves all extremities Cranial Nerves: CN's II-XII intact bilaterally Cognition: normal cognition Speech: speech normal Gait: normal gait Motor: muscle tone normal throughout and strength 5/5 throughout Sensory Exam: no sensory deficits noted Extrem General: normal to inspection and full ROM Psych Appearance: grossly normal and well kempt Mental Status: mental status grossly normal Speech and Movement: speech and movement normal Affect: normal affect Attitude: cooperative Thought Process: normal Thought Content: normal Insight: insight good Judgment: judgment good Immunizations Shingrix (PF) 50 mcg/0.5 mL Performing Provider: Estela Bowser NP Administered by: Shruti Callahan on 10/06/20 09:35 Dose Route Admin Location Lot Number Expiration Date IDC Manufactu rer 0.5 mL IM Right deltoid [id number] 08/31/22 [id number] [employer] VIS Given Date VIS Provided VIS Publication Date 10/06/20 Single Vaccine 19 Eligibility Eligibility Date Funding Source Not [facility] Eligible 10/06/20 Private Assessment Plan Assessment Plan (1) Osteoporosis: Status: Acute Code(s): M81.0 - Age-related osteoporosis without current pathological fracture Category: Medical (2) Difficulty swallowing pills: Status: Acute Code(s): R19.8 - Other specified symptoms and signs involving the digestive system and abdomen Category: Medical Plan - Estela Bowser NP: BARIUM SWALLOW TO EVALUATE DIFFICULTY SWALLOWING PILLS. RTC 6 MONTHS SHINGRIX TODAY Orders: Orders: Xray Esophagram (BS)-SINGLE CO Today Orders Other Medications: Refilled: alendronate 70 mg PO 1XW 14 tabs 3RF simvastatin 10 mg PO QDAY 90 tabs 3RF Other Orders: Orders: INJ - Shingrix Vaccine Today Z23 <Electronically signed by Estela Bowser NP> 10/06/20 0945 Name Value Range Interpretation Code Description Data Christin rce(s) Supporting Document(s) Procedure Social History No Information Vital Signs ID Date Data Source UNK Name Value Range Interpretation Code Description Data Source(s) Diastolic blood pressure 66 mm[Hg] 66 mm[Hg] AUDREY ([facility], ) Systolic blood pressure 122 mm[Hg] 122 mm[Hg] Kacie MARK ([facility], ) Body weight 158.00 [lb_av] 158.00 [lb_av] MEDEN T ([facility]) Body mass index (BMI) [Ratio] 26.3 kg/m2 26.3 k g/m2 [facility] [place] body weight 125 [lb_av] 125 [lb_av] MEDEN T ([facility]) Body weight 71.669 kg 71.669 kg [facility] Body surface area Derived from formula 1.79 m2 1.79 m2 [facility] ([facility]) Body height 65 [in_i] 65 [in_i] MEDENT ([facility]) 5'5" Body height 65 [in_i] 65 [in_i] MEDENT ([facility]) 5'5" Body weight 150.00 [lb_av] 150.00 [lb_av] MEDEN T ([facility]) Body temperature 97.1 [degF] 97.1 [degF] [facility] ([facility]) Body mass index (BMI) [Ratio] 25.0 kg/m2 25.0 k g/m2 [facility] ([facility]) Body height 65 [in_i] 65 [in_i] [facility] 5'5" Body weight 161.00 [lb_av] 161.00 [lb_av] MEDEN T ([facility]) Body mass index (BMI) [Ratio] 26.8 kg/m2 26.8 k g/m2 [facility] ([facility]) [place] body weight 125 [lb_av] 125 [lb_av] MEDEN T ([facility]) Body weight 73.030 kg 73.030 kg [facility] ([facility]) Body surface area Derived from formula 1.80 m2 1.80 m2 [facility] ([facility]) Systolic blood pressure 116 mm[Hg] 116 mm[Hg] M EDENT ([facility]) Diastolic blood pressure 58 mm[Hg] 58 mm[Hg] [facility] Body height 65 [in_i] 65 [in_i] [facility] ([facility], ) 5'5" Body weight 161.00 [lb_av] 161.00 [lb_av] [facility] [facility] Body mass index (BMI) [Ratio] 26.8 kg/m2 26.8 k g/m2 [facility] ([facility]) [place] body weight 125 [lb_av] 125 [lb_av] [facility] ([facility]) Body weight 73.030 kg 73.030 kg [facility] ([facility]) Body surface area Derived from formula 1.80 m2 1.80 m2 [facility] ([facility])
[2021-11-06] MEDS ORDERED: LIDOCAINE 2% 100MG/5ML SDV (FOR ANES.) As Ordered ONE ×2 (11:47→11:48)
[2021-11-06] MEDS ORDERED: propofoL 200 MG/20 ML VIAL As Ordered ONE (11:47)
--- NOTE | 2021-11-06 13:34 | ROOR ---
Patient Name: Violeta Yepez Procedure Date: 11/06/2021 12:53 PM Date of : 1945 Age: 76 Room: [facility] Gender: Female Note Status: Finalized Procedure: Upper GI endoscopy Indications: Dysphagia Providers: Trey Melchor MD Referring MD: Estela Bowser NP Requesting Provider: Medicines: Monitored Anesthesia Care Complications: No immediate complications. Procedure: Pre-Anesthesia Assessment: - Prior to the procedure, a History and Physical was performed, and patient medications and allergies were reviewed. The patient is competent. The risks and benefits of the procedure and the sedation options and risks were discussed with the patient. All questions were answered and informed consent was obtained. Patient identification and proposed procedure were verified by the physician, the nurse and the anesthesiologist in the procedure room. Mental Status Examination: alert and oriented. Airway Examination: normal oropharyngeal airway and neck mobility. Respiratory Examination: clear to auscultation. CV Examination: normal. Prophylactic Antibiotics: The patient does not require prophylactic antibiotics. Prior Anticoagulants: The patient has taken no previous anticoagulant or antiplatelet agents. ASA Grade Assessment: III - A patient with severe systemic disease. After reviewing the risks and benefits, the patient was deemed in satisfactory condition to undergo the procedure. The anesthesia plan was to use monitored anesthesia care (MAC). Immediately prior to administration of medications, the patient was re-assessed for adequacy to receive sedatives. The heart rate, respiratory rate, oxygen saturations, blood pressure, adequacy of pulmonary ventilation, and response to care were monitored throughout the procedure. The physical status of the patient was re-assessed after the procedure. The Endoscope was introduced through the mouth, and advanced to the second part of duodenum. The upper GI endoscopy was accomplished without difficulty. The patient tolerated the procedure well. Findings: LA Grade A (one or more mucosal breaks less than 5 mm, not extending between tops of 2 mucosal folds) esophagitis with no bleeding was found in the distal esophagus. Mucosal changes including longitudinal furrows and white plaques were found in the lower third of the esophagus. Biopsies were obtained from the proximal and distal esophagus with cold forceps for histology of suspected eosinophilic esophagitis. Verification of patient identification for the specimen was done by the physician and nurse using the patient's name, date and medical record number. Estimated blood loss was minimal. One benign-appearing, intrinsic moderate (circumferential scarring or stenosis; an endoscope may pass) stenosis was found at the gastroesophageal junction. This stenosis measured 1.6 cm (inner diameter). The stenosis was traversed. A TTS dilator was passed through the scope. Dilation with an 18-19-20 mm balloon dilator was performed to 20 mm. The dilation site was examined and showed moderate mucosal disruption, moderate improvement in luminal narrowing and no perforation. The entire examined stomach was normal. The duodenal bulb, second portion of the duodenum, area of the papilla and third portion of the duodenum were normal. Impression: - LA Grade A reflux esophagitis. - Esophageal mucosal changes suspicious for eosinophilic esophagitis. Biopsied. - Benign-appearing esophageal stenosis. Dilated. - Normal stomach. - Normal duodenal bulb, second portion of the duodenum, area of the papilla and third portion of the duodenum. Recommendation: - Patient has a contact number available for emergencies. The signs and symptoms of potential delayed complications were discussed with the patient. Return to normal activities tomorrow. Written discharge instructions were provided to the patient. - High fiber diet. - Continue present medications. - Await pathology results. - Telephone GI clinic for pathology results in 2 weeks. - Return to GI clinic if persistent symptoms or new symptoms. - Perform ambulatory esophageal manometry at appointment to be scheduled. - Return to primary care physician. Procedure Code(s): --- Professional --- 27349, 59, Esophagogastroduodenoscopy, flexible, transoral; with transendoscopic balloon dilation of esophagus (less than 30 mm diameter) 09631, 59, Esophagogastroduodenoscopy, flexible, transoral; with biopsy, single or multiple Diagnosis Code(s): --- Professional --- K21.0, Gastro-esophageal reflux disease with esophagitis K22.8, Other specified diseases of esophagus K22.2, Esophageal obstruction R13.10, Dysphagia, unspecified CPT copyright 2019 [employer]. All rights reserved. The codes documented in this report are preliminary and upon rail maintenance worker review may be revised to meet current compliance requirements. Trey Melchor MD Trey Melchor MD 11/06/2021 1:34:22 PM Electronically signed by Trey Melchor MD Number of Addenda: 0 Note Initiated On: 11/06/2021 12:53 PM Estimated Blood Loss: Estimated blood loss was minimal.
[2021-11-06 13:37] VITALS: BP 131/77
== END 2021-11-06 13:45 | disposition home or self-care (01) ==
LOC: M OPP 11:28
PROVIDERS: ATTEND Internal Medicine Gastroenterology
DX: K21.00 Gastro-esophageal reflux disease with esophagitis, without bleeding (principal); K22.89 Other specified disease of esophagus; K22.2 Esophageal obstruction; R13.10 Dysphagia, unspecified; Z79.899 Other long term (current) drug therapy

== ENCOUNTER → 2022-01-26 | Outpatient (CLI) | payer MEDICARE ==
[~2022-01-26] MED LIST changes: -NS 1,000 ML IV ONE
== END ==
LOC: M LABSMTC 11:30
PROVIDERS: ATTEND Internal Medicine Gastroenterology
DX: Z01.812 Encounter for preprocedural laboratory examination (principal)